=== PATIENT | female | born 1950 | race Caucasian/White ===

== ENCOUNTER 2019-10-22 06:00 | Outpatient (RCR) | payer MEDICARE, OTHER, SELFPAY | END 2019-11-21 00:01 | LOC: SPT 06:00 | PROVIDERS: Family Provider Family Medicine; Visit Provider Family Medicine | DX: M54.5 Low back pain (principal); M19.90 Unspecified osteoarthritis, unspecified site | CPT/HCPCS: 97110 ×4 ==

== ENCOUNTER 2020-03-29 09:01 | Outpatient (CLI) | payer MEDICARE, OTHER, SELFPAY ==
--- NOTE | 2020-03-29 09:15 | MM_ITS ---
WS: [id number] BILATERAL DIGITAL SCREENING MAMMOGRAPHY WITH CAD CLINICAL INFORMATION: SCREEN HISTORY: Screening mammogram. No current complaints. COMPARISON: December 29, 2018 TECHNIQUE: Bilateral CC and MLO views. FINDINGS: Scattered fibroglandular densities bilaterally. Increasing asymmetric slightly spiculated density cate suring 8 mm upper outer LEFT breast. Recommend spot compression views and ultrasound. This is best se en on the cc view. Vascular calcification. Right breast is unchanged. MM/[place] [id number] IMPRESSION: BI-RADS: 0-Incomplete: Need additional imaging evaluation FOLLOW UP: Need Additional Imaging
== END 2020-03-29 09:02 | disposition home or self-care (01) ==
LOC: RADSHAW 09:07
PROVIDERS: PCP Family Medicine; Visit Provider Family Medicine
DX: Z12.31 Encounter for screening mammogram for malignant neoplasm of breast (principal)
CPT/HCPCS: 77067

== ENCOUNTER 2020-05-13 07:54 | Outpatient (CLI) | payer MEDICARE, OTHER, SELFPAY ==
--- NOTE | 2020-05-13 08:02 | US_ITS ---
WS: [id number] LEFT DIGITAL MAMMOGRAPHY WITH CAD CLINICAL INFORMATION: ABNORMAL MAMMOGRAM COMPARISON: March 29, 2020 TECHNIQUE: 4 views of the left breast were obtained. FINDINGS: The left breast is composed of heterogeneous fibroglandular density tissue, which can limit the detec tion of small underlying mass lesions. Vascular calcification. Stable 8 mm slightly spiculated asymmetric density upper outer left breast. This persists on spot com pression views. Ultrasound is pending. ULTRASOUND BREAST LEFT TECHNIQUE: Ultrasound left breast focused area of concern. CLINICAL INFORMATION: ABNORMAL MAMMOGRAM COMPARISON: 2019 and 12/29/2018 FINDINGS: Ultrasound left breast at the 12 to 3:00 position. A few faint hypoechoic lesions the largest at the 12:00 position. 12:00 lesion measures 9.4 x 3.4 x 5.9 mm. Irregular lobulated borders. Recommend furt her evaluation with ultrasound-guided biopsy. Additional smaller hypoechoic lesions at the 1:00 and 3:00 positions are probably benign and recommen d 6 month follow-up with left diagnostic mammography and ultrasound. US/US breast LT limited* [id number] IMPRESSION: BI-RADS: 4A-Suspicious: Low FOLLOW UP: US Guided Biopsy Recommended
== END 2020-05-13 07:55 | disposition home or self-care (01) ==
LOC: RADSHAW 08:00
PROVIDERS: PCP Family Medicine; Visit Provider Family Medicine
DX: R92.8 Other abnormal and inconclusive findings on diagnostic imaging of breast (principal); N64.89 Other specified disorders of breast
CPT/HCPCS: 76642; 77065

== ENCOUNTER 2020-06-13 12:03 | Outpatient (CLI) | payer MEDICARE, OTHER, SELFPAY ==
--- NOTE | 2020-06-13 13:00 | US_ITS ---
WS: [id number] ULTRASOUND-GUIDED LEFT BREAST BIOPSY HISTORY: abnormal mammogram COMPARISON: 05/11/2020 and 03/29/2020 Procedure, risks and complications are explained to the patient. Medications are reviewed. Consent is obtained. The mass in the LEFT breast is localized with ultrasound. Mass centered at 12:00, 3 cm from the nippl e. Skin is cleansed with ChloraPrep and anesthetized with 1% buffered lidocaine. Small dermatome is m deanna. Under sterile conditions mass is biopsied with a 14-gauge Achieve needle. Multiple core biopsies are performed. Material placed in formalin and sent to pathology for review. No complications encoun tered. Breast tissue marker (Bard ultrasound enhanced ribbon): Single. Patient left the radiology suite with no complications. Patient is instructed to return [place] [facility] [place] [facility] with any concerns. 1. Uncomplicated core needle biopsy LEFT breast nodule at 12:00. US/[place] [id number] IMPRESSION: PATHOLOGY: Benign fibroadipose tissue with stromal fibrosis. No malignancy. RECOMMENDATION: 6 month LEFT breast diagnostic mammogram. Imaging and pathological findings are concordant.
== END 2020-06-13 12:04 | disposition home or self-care (01) ==
LOC: RAD 12:07
PROVIDERS: PCP Family Medicine; Visit Provider Obstetrics & Gynecology
DX: R92.8 Other abnormal and inconclusive findings on diagnostic imaging of breast (principal); N60.32 Fibrosclerosis of left breast
CPT/HCPCS: 19083; 88305

== ENCOUNTER 2020-10-25 10:01 | Outpatient (CLI) | payer MEDICARE, OTHER, SELFPAY ==
--- NOTE | 2020-10-25 10:30 | MM_ITS ---
WS: [id number] Left breast diagnostic digital mammogram, 10/25/2020 Clinical Data: abnormal mammogram Comparison: 05/13/2020, 03/29/2020, 12/29/2018, 06/09/2017, 03/19/2016, 03/07/2015, 02/15/2014, 11/03/2012, , 08/26/2010, 07/30/2009, 07/17/2008, 06/02/2007, 07/15/2006. Findings: The left breast lesion noted on prior exams is no longer present. There is a biopsy clip in the regio n of this density. The breast parenchymal pattern shows fibroglandular tissue. There are small lymph nodes in the left axilla. There are no spiculated masses or clustered calcifications. MM/[place] [id number] Impression: 1. Negative left breast mammogram. 2. Return to annual screening mammograms BIRADS: 2-Benign FOLLOW UP: 1 Year Follow-up The CAD jukebox checker was used.
== END 2020-10-25 10:02 | disposition home or self-care (01) ==
LOC: RADSHAW 10:05
PROVIDERS: PCP Family Medicine; Visit Provider Obstetrics & Gynecology
DX: R92.8 Other abnormal and inconclusive findings on diagnostic imaging of breast (principal)
CPT/HCPCS: 77065

== ENCOUNTER 2020-12-11 09:53 | Outpatient (CLI) | payer MEDICARE, SELFPAY ==
--- NOTE | 2020-12-11 11:59 | XR_ITS ---
WS: [id number] LEFT SHOULDER: 2 VIEW(S) TECHNIQUE: Internal and external rotation. HISTORY: M19.90 - Unspecified osteoarthritis, unspecified site COMPARISON: None available. No fracture or dislocation or soft tissue abnormality. Mild narrowing of the AC joint. Minimal hypertrophic bone formation. More advanced narrowing with ost eophyte formation and sclerosis involving the glenohumeral joint. No fractures. XR/XR shoulder LT min 2V* [id number] IMPRESSION: 1. Moderate to severe glenohumeral joint osteoarthritis. 2. Mild degenerative changes at the AC joint.
--- NOTE | 2020-12-11 11:59 | XR_ITS ---
WS: [id number] Lumbar spine, 3 views, 12/11/2020 Clinical Data: M19.90 - Unspecified osteoarthritis, unspecified site Comparison: Lumbar spine, 09/08/2019. Findings: There is a dextroscoliosis. There is osteoarthritic change involving lumbar vertebral bodies. All the disc spaces from L1-L2 through L5-S1 show degenerative disc disease. The transverse processes and SI joints are normal. XR/XR lumbar spine 2-3V* [id number] Impression: 1. Osteoarthritis of all lumbar vertebral bodies. 2. Degenerative disc disease at all levels. 3. Minimal dextroscoliosis.
--- NOTE | 2020-12-11 11:59 | XR_ITS ---
WS: [id number] Left hand, 2 views, 12/11/2020 Clinical Data: M19.90 - Unspecified osteoarthritis, unspecified site Comparison: None. Findings: Osteoarthritis of the DIP joints is present. There is osteoarthritis of the PIP joints of the left fo urth and fifth fingers. There is osteoarthritis of the head of the left first metacarpal and at the a rticulation between the left first metacarpal and trapezium. No fractures are seen. The patient's rin g obscures minimal detail over the left fourth proximal phalanx. XR/XR hand LT 2V [id number] Impression: 1. Osteoarthritis of the second through fifth DIP joints and of the left fourth and fifth PIP joints. 2. Osteoarthritis of the left first metacarpal.
--- NOTE | 2020-12-11 11:59 | XR_ITS ---
WS: [id number] Right shoulder, 2 views, 12/11/2020 Clinical Data: M19.90 - Unspecified osteoarthritis, unspecified site Comparison: Right shoulder, 07/04/2018. Findings: No fractures or dislocations are seen. The AC joint is normal. The adjacent right clavicle, right sca pula and ribs are normal. The soft tissues are unremarkable. There is irregularity over the greater tuberosity. There is spur of the lesser tuberosity adjacent to the inferior rim of the glenoid. XR/XR shoulder RT min 2V* [id number] Impression: Moderate osteoarthritis of the right humeral head.
--- NOTE | 2020-12-11 11:59 | XR_ITS ---
WS: [id number] Right knee, AP and lateral, 12/11/2020 Clinical Data: M19.90 - Unspecified osteoarthritis, unspecified site Comparison: AP knees, 10/06/2017. Findings: The patient has had a hemiarthroplasty involving the medial joint compartment of the right knee. The arthroplasty components are in good position with no loosening. The posterior right patella is un remarkable. The soft tissues are normal. XR/XR knee RT 1-2V [id number] Impression: Medial right hemiarthroplasty of the right knee.
--- NOTE | 2020-12-11 11:59 | XR_ITS ---
WS: [id number] Left knee, 2 views, 12/11/2020 Clinical Data: M19.90 - Unspecified osteoarthritis, unspecified site Comparison: Bilateral knees, 10/06/2017. Findings: The arthroplasty components of the left knee are good position. No loosening is seen. There are no fr actures or dislocations. XR/XR knee LT 1-2V [id number] Impression: Left knee arthroplasty.
--- NOTE | 2020-12-11 11:59 | XR_ITS ---
WS: [id number] Right hand, 2 views, 12/11/2020 Clinical Data: M19.90 - Unspecified osteoarthritis, unspecified site Comparison: None. Findings: There is osteoarthritis of the DIP joints. Moderate osteoarthritis of the PIP joints especi ally the right fifth PIP joint is noted. There are no fractures or dislocations. No periarticular dem ineralization or calcifications are seen. Osteoarthritis of the head of the right first metacarpal and osteoarthritis at the articulation betwe en the trapezium and base of right first metacarpal are seen. XR/XR hand RT 2V [id number] Impression: Osteoarthritis of the right first metacarpal, PIP and DIP joints of the right h and.
[2020-12-11 12:00] LABS: Basophils % 0.5 %; Hemoglobin 13.9 g/dL (11.5-15.3); Mean Platelet Volume 9.6 fL (7.4-10.4); Nucleated Red Blood Cells % 0 %
[2020-12-11 12:10] LABS: Eosinophils # 0.1 10^3/uL (0.0-0.8); Eosinophils % 1.2 %; Hematocrit 42.3 % (37.0-47.0); Lymphocytes # 1.2 10^3/uL (0.8-4.8); Mean Corpuscular HGB Conc 32.9 g/dL (30.0-36.0); Mean Corpuscular Hemoglobin 29.5 pg (28.0-34.0); Mean Corpuscular Volume 89.8 fL (81-99); Monocytes # 0.3 10^3/uL (0.2-0.9); Neutrophils # 2.49 10^3/uL (1.8-7.7); Neutrophils % 60.1 %; Platelet Count 241 10^3/cmm (130-400); Red Blood Count 4.71 10^6/uL (4.1-5.3); White Blood Count 4.1 10^3/uL (4.0-10.0)
[2020-12-11 12:31] LABS: Alanine Aminotransferase 8 U/L (0-33); Albumin Level 4.5 g/dL (3.5-5.2); Alkaline Phosphatase 96 IU/L (35-105); Anion Gap 14.3 (5-19); Aspartate Amino Transferase 20 U/L (0-32); Blood Urea Nitrogen 14 mg/dL (8-23); C Reactive Protein 1.8 mg/L (0.0-4.9); Calcium 9.9 mg/dL (8.5-10.5); Carbon Dioxide 27 mmol/L (22-29); Chloride 100 mmol/L (98-107); Ferritin 40 ng/mL (15-150); Globulin 2.8 g/dL (1.3-4.6); Glucose 94 mg/dL (65-115); Iron 90 ug/dL (37-145); Osmolality Calculated 284 mOsm/kg (285-295); Potassium 4.3 mmol/L (3.5-5.1); Sodium 137 mmol/L (136-145); Thyroid Stimulating Hormone 2.11 uIU/mL (0.27-4.20); Total Bilirubin 0.4 mg/dL (0.15-1.2); Total Protein 7.3 g/dL (6.6-8.7)
[2020-12-11 14:11] LABS: Hepatitis B Core AB, Total Non-Reactive (Nonreactive); Hepatitis B Surface Antigen Non-Reactive (Nonreactive); Hepatitis C Virus Antibody Non-Reactive (Nonreactive)
[2020-12-12 14:14] LABS: Cyclic Citrullinated Peptide <16 UNITS
[2020-12-12 14:44] LABS: Anti-Nuclear Antibody Screen NEGATIVE (NEGATIVE)
[2020-12-15 02:25] LABS: Glucose-6-Phosphate Dehydrogen 14.6 U/g Hgb (7.0-20.5)
[2020-12-18 10:24] LABS: HLA-B27 POSITIVE (NEGATIVE)
== END 2020-12-11 09:54 | disposition home or self-care (01) ==
LOC: LAB 11:35
PROVIDERS: PCP Family Medicine; Visit Provider Internal Medicine
DX: D86.9 Sarcoidosis, unspecified (principal); M19.012 Primary osteoarthritis, left shoulder; Z51.81 Encounter for therapeutic drug level monitoring; M19.011 Primary osteoarthritis, right shoulder; M47.816 Spondylosis without myelopathy or radiculopathy, lumbar region; M51.36 Other intervertebral disc degeneration, lumbar region; M41.86 Other forms of scoliosis, lumbar region; Z96.653 Presence of artificial knee joint, bilateral; M19.042 Primary osteoarthritis, left hand; M19.041 Primary osteoarthritis, right hand
CPT/HCPCS: 36415; 72100; 73030; 73120; 73560; 80053; 82728; 82955; 83540; 84443; 85025; 86038; 86140; 86431; 86704; 86803; 86812; 87340; 99203; 99204

== ENCOUNTER → 2021-01-03 09:18 | Outpatient (BNVA) | payer MEDICARE, SELFPAY | PROVIDERS: PCP Family Medicine; Visit Provider Internal Medicine | DX: M19.90 Unspecified osteoarthritis, unspecified site (principal); M79.643 Pain in unspecified hand; Z15.89 Genetic susceptibility to other disease; Z79.52 Long term (current) use of systemic steroids | CPT/HCPCS: 99214 ==

== ENCOUNTER 2021-04-01 15:52 | Outpatient (CLI) | payer MEDICARE, SELFPAY ==
[2021-04-01 16:27] LABS: Basophils % 0.5 %; Eosinophils # 0.1 10^3/uL (0.0-0.8); Eosinophils % 3.2 %; Hematocrit 38.5 % (37.0-47.0); Hemoglobin 12.9 g/dL (11.5-15.3); Lymphocytes # 1.4 10^3/uL (0.8-4.8); Lymphocytes % 30.9 %; Mean Corpuscular HGB Conc 33.5 g/dL (30.0-36.0); Mean Corpuscular Hemoglobin 30.8 pg (28.0-34.0); Mean Corpuscular Volume 91.9 fL (81-99); Mean Platelet Volume 9.9 fL (7.4-10.4); Monocytes # 0.4 10^3/uL (0.2-0.9); Monocytes % 8.8 %; Neutrophils # 2.49 10^3/uL (1.8-7.7); Neutrophils % 56.1 %; Nucleated Red Blood Cells % 0 %; Platelet Count 231 10^3/cmm (130-400); Red Blood Count 4.19 10^6/uL (4.1-5.3); Red Cell Distribution Width 12.4 % (12.1-15.1); White Blood Count 4.4 10^3/uL (4.0-10.0)
[2021-04-01 17:39] LABS: Alanine Aminotransferase 12 U/L (0-33); Albumin Level 4.4 g/dL (3.5-5.2); Alkaline Phosphatase 81 IU/L (35-105); Anion Gap 11.4 (5-19); Aspartate Amino Transferase 24 U/L (0-32); Blood Urea Nitrogen 13 mg/dL (8-23); C Reactive Protein 0.9 mg/L (0.0-4.9); Calcium 8.7 mg/dL (8.5-10.5); Carbon Dioxide 28 mmol/L (22-29); Chloride 105 mmol/L (98-107); Globulin 2.3 g/dL (1.3-4.6); Glucose 99 mg/dL (65-115); Osmolality Calculated 290 mOsm/kg (285-295); Potassium 4.4 mmol/L (3.5-5.1); Sodium 140 mmol/L (136-145); Total Bilirubin 0.2 mg/dL (0.15-1.2); Total Protein 6.7 g/dL (6.6-8.7)
[2021-04-01 21:23] LABS: Erythrocyte Sedimentation Rate 15 mm/hr (0-15)
== END 2021-04-01 15:53 | disposition home or self-care (01) ==
PROVIDERS: PCP Family Medicine; Visit Provider Internal Medicine
DX: M19.90 Unspecified osteoarthritis, unspecified site (principal); Z15.89 Genetic susceptibility to other disease; Z79.899 Other long term (current) drug therapy
CPT/HCPCS: 36415; 80053; 85025; 85651; 86140

== ENCOUNTER → 2021-04-08 09:27 | Outpatient (BNVA) | payer MEDICARE, SELFPAY | PROVIDERS: PCP Family Medicine; Visit Provider Internal Medicine | DX: M79.641 Pain in right hand (principal); M79.642 Pain in left hand; Z15.89 Genetic susceptibility to other disease; M19.90 Unspecified osteoarthritis, unspecified site | CPT/HCPCS: 99213 ==

== ENCOUNTER → 2021-04-22 15:26 | Outpatient (BNVA) | payer MEDICARE, SELFPAY | PROVIDERS: PCP Family Medicine; Visit Provider Internal Medicine | DX: M19.90 Unspecified osteoarthritis, unspecified site (principal); Z15.89 Genetic susceptibility to other disease | CPT/HCPCS: 20610; 99213; J3301 ==

== ENCOUNTER → 2021-04-25 09:20 | Outpatient (BNVA) | payer MEDICARE, SELFPAY | PROVIDERS: PCP Family Medicine; Visit Provider Internal Medicine | DX: T50.905A Adverse effect of unspecified drugs, medicaments and biological substances, initial encounter (principal); M19.90 Unspecified osteoarthritis, unspecified site; R21 Rash and other nonspecific skin eruption | CPT/HCPCS: 99213 ==

== ENCOUNTER 2021-05-30 10:51 | Outpatient (CLI) | payer MEDICARE, SELFPAY ==
--- NOTE | 2021-05-30 10:59 | MM_ITS ---
WS: [id number] SCREENING DIGITAL MAMMOGRAM WITH CAD HISTORY: SCREENING COMPARISON: None available. Bilateral CC and MLO views submitted. Computer aided detection analyzed. Breast composition: There are scattered areas of fibroglandular density. Focal area of architectural distortion in the LEFT breast near 10:00 posteriorly. Very subtle finding but there is been increased in the density since the prior examinations. There is an additional biopsy clip in the middle upper outer quadrant of the LEFT breast. MM/[place] [id number] IMPRESSION: BI-RADS: 0-Incomplete: Need additional imaging evaluation FOLLOW UP: Need Additional Imaging LEFT breast: Spot compression views (CC and MLO). True ML. Ultrasound to follow if abnormality persists.
== END 2021-05-30 10:52 | disposition home or self-care (01) ==
LOC: RADSHAW 10:57
PROVIDERS: PCP Family Medicine; Visit Provider Obstetrics & Gynecology
DX: Z12.31 Encounter for screening mammogram for malignant neoplasm of breast (principal)
CPT/HCPCS: 77067

== ENCOUNTER 2021-06-11 07:39 | Outpatient (CLI) | payer MEDICARE, SELFPAY ==
--- NOTE | 2021-06-11 08:00 | MM_ITS ---
WS: [id number] ADDITIONAL VIEWS LEFT MAMMOGRAM LEFT BREAST ULTRASOUND HISTORY: R92.8 - Other abnormal and inconclusive findings on diagnostic mammogram. COMPARISON: 05/30/2021 and 10/25/2020 and 05/13/2022 and 03/19/2016 LEFT MAMMOGRAM: Spot compression views and true ML. Very mild asymmetry persists in the upper-outer quadrant of the LEFT breast near 2:00. LEFT BREAST ULTRASOUND 2-D and color Doppler imaging submitted. There is a small lymph node or cyst noted in the LEFT breast at 1:00, 3 cm from the nipple. This nodu le measures 5 x 2 x 5 mm. May or may not correspond to the mammographic abnormality. MM/[place] [id number] IMPRESSION: BI-RADS: 3-Probably Benign FOLLOW UP: 6 Month Follow-up Asymmetry does not completely resolve with additional views although there is n o discrete mass for biopsy. Recommend 6 month follow-up. Mammogram and ultrasou nd follow-up necessary.
--- NOTE | 2021-06-11 08:30 | US_ITS ---
WS: [id number] ADDITIONAL VIEWS LEFT MAMMOGRAM LEFT BREAST ULTRASOUND HISTORY: R92.8 - Other abnormal and inconclusive findings on diagnostic mammogram. COMPARISON: 05/30/2021 and 10/25/2020 and 05/13/2022 and 03/19/2016 LEFT MAMMOGRAM: Spot compression views and true ML. Very mild asymmetry persists in the upper-outer quadrant of the LEFT breast near 2:00. LEFT BREAST ULTRASOUND 2-D and color Doppler imaging submitted. There is a small lymph node or cyst noted in the LEFT breast at 1:00, 3 cm from the nipple. This nodu le measures 5 x 2 x 5 mm. May or may not correspond to the mammographic abnormality. US/US breast LT limited* [id number] IMPRESSION: BI-RADS: 3-Probably Benign FOLLOW UP: 6 Month Follow-up Asymmetry does not completely resolve with additional views although there is n o discrete mass for biopsy. Recommend 6 month follow-up. Mammogram and ultrasou nd follow-up necessary.
== END 2021-06-11 07:40 | disposition home or self-care (01) ==
PROVIDERS: PCP Family Medicine; Visit Provider Obstetrics & Gynecology
DX: R92.8 Other abnormal and inconclusive findings on diagnostic imaging of breast (principal); N64.89 Other specified disorders of breast
CPT/HCPCS: 76642; 77065

== ENCOUNTER 2021-07-25 08:52 | Outpatient (CLI) | payer MEDICARE, SELFPAY ==
[2021-07-25 09:54] LABS: Alanine Aminotransferase 11 U/L (0-33); Albumin Level 4.1 g/dL (3.5-5.2); Alkaline Phosphatase 79 IU/L (35-105); Blood Urea Nitrogen 17 mg/dL (8-23); C Reactive Protein 1.5 mg/L (0.0-4.9); Calcium 8.9 mg/dL (8.5-10.5); Carbon Dioxide 24 mmol/L (22-29); Chloride 106 mmol/L (98-107); Globulin 2.4 g/dL (1.3-4.6); Glucose 66 mg/dL (65-115); Osmolality Calculated 288 mOsm/kg (285-295); Sodium 139 mmol/L (136-145); Total Bilirubin 0.2 mg/dL (0.15-1.2); Total Protein 6.5 g/dL (6.6-8.7)
[2021-07-25 09:58] LABS: Anion Gap 13.6 (5-19); Potassium 4.6 mmol/L (3.5-5.1)
[2021-07-25 09:59] LABS: Aspartate Amino Transferase 26 U/L (0-32); Basophils % 0.5 %; Eosinophils # 0.2 10^3/uL (0.0-0.8); Eosinophils % 4.6 %; Hematocrit 39.9 % (37.0-47.0); Hemoglobin 12.9 g/dL (11.5-15.3); Lymphocytes % 26.3 %; Mean Corpuscular HGB Conc 32.3 g/dL (30.0-36.0); Mean Corpuscular Hemoglobin 30.4 pg (28.0-34.0); Mean Corpuscular Volume 93.9 fl (81-99); Mean Platelet Volume 9.6 fL (7.4-10.4); Monocytes # 0.4 10^3/uL (0.2-0.9); Monocytes % 10.2 %; Neutrophils # 2.28 10^3/uL (1.8-7.7); Neutrophils % 58.1 %; Nucleated Red Blood Cells % 0 %; Platelet Count 205 10^3/cmm (130-400); Red Blood Count 4.25 10^6/uL (4.1-5.3); White Blood Count 3.9 10^3/uL (4.0-10.0)
[2021-07-25 11:06] LABS: Erythrocyte Sedimentation Rate 9 mm/hr (0-15)
== END 2021-07-25 08:53 | disposition home or self-care (01) ==
PROVIDERS: PCP Family Medicine; Visit Provider Internal Medicine
DX: M19.90 Unspecified osteoarthritis, unspecified site (principal); Z15.89 Genetic susceptibility to other disease; Z79.899 Other long term (current) drug therapy
CPT/HCPCS: 36415; 80053; 85025; 85651; 86140

== ENCOUNTER → 2021-08-04 14:03 | Outpatient (BNVA) | payer MEDICARE, SELFPAY | PROVIDERS: PCP Family Medicine; Visit Provider Internal Medicine | DX: Z15.89 Genetic susceptibility to other disease (principal); M19.90 Unspecified osteoarthritis, unspecified site; Z79.899 Other long term (current) drug therapy | CPT/HCPCS: 99213; 99214 ==

== ENCOUNTER 2021-08-04 15:50 | Outpatient (CLI) | payer MEDICARE, SELFPAY ==
--- NOTE | 2021-08-04 16:13 | XR_ITS ---
WS: [id number] XR sacroiliac jts m 3V [id number] REASON FOR EXAM: L40.9 - Psoriasis, unspecified FINDINGS: Sacroiliac joints are well defined with sclerotic margins. No erosions. No bony bridging or areas eff usion. Osteophytosis at the distal margins of the sacroiliac joints. No other significant abnormality. XR/XR sacroiliac jts m 3V [id number] IMPRESSION: No findings of spondyloarthropathy in the sacroiliac joints.
== END 2021-08-04 15:51 | disposition home or self-care (01) ==
LOC: RAD 15:56
PROVIDERS: PCP Family Medicine; Visit Provider Internal Medicine
DX: L40.9 Psoriasis, unspecified (principal); Z15.89 Genetic susceptibility to other disease
CPT/HCPCS: 72202

== ENCOUNTER → 2021-10-29 13:02 | Outpatient (BNVA) | payer MEDICARE, SELFPAY | PROVIDERS: PCP Family Medicine; Visit Provider Internal Medicine | DX: M19.019 Primary osteoarthritis, unspecified shoulder (principal); Z15.89 Genetic susceptibility to other disease; D72.819 Decreased white blood cell count, unspecified; Z79.899 Other long term (current) drug therapy | CPT/HCPCS: 36415; 80053; 85025; 85651; 86140; 99214 ==

== ENCOUNTER 2021-10-29 15:05 | Outpatient (CLI) | payer MEDICARE, SELFPAY ==
[2021-10-29 15:40] LABS: Basophils % 0.4 %; Eosinophils # 0.1 10^3/uL (0.0-0.8); Eosinophils % 2.6 %; Hematocrit 38.2 % (37.0-47.0); Hemoglobin 12.8 g/dL (11.5-15.3); Lymphocytes # 1.4 10^3/uL (0.8-4.8); Lymphocytes % 26.8 %; Mean Corpuscular HGB Conc 33.5 g/dL (30.0-36.0); Mean Corpuscular Hemoglobin 30.5 pg (28.0-34.0); Mean Platelet Volume 9.3 fL (7.4-10.4); Monocytes # 0.4 10^3/uL (0.2-0.9); Monocytes % 7.7 %; Neutrophils # 3.29 10^3/uL (1.8-7.7); Neutrophils % 62.1 %; Nucleated Red Blood Cells % 0 %; Platelet Count 239 10^3/cmm (130-400); Red Cell Distribution Width 11.9 % (12.1-15.1); White Blood Count 5.3 10^3/uL (4.0-10.0)
[2021-10-29 15:49] LABS: Alanine Aminotransferase 11 U/L (0-33); Albumin Level 4.6 g/dL (3.5-5.2); Alkaline Phosphatase 75 IU/L (35-105); Anion Gap 17.3 (5-19); Aspartate Amino Transferase 20 U/L (0-32); Blood Urea Nitrogen 14 mg/dL (8-23); C Reactive Protein 0.7 mg/L (0.0-4.9); Carbon Dioxide 23 mmol/L (22-29); Chloride 102 mmol/L (98-107); Globulin 2.5 g/dL (1.3-4.6); Glucose 85 mg/dL (65-115); Osmolality Calculated 286 mOsm/kg (285-295); Potassium 4.3 mmol/L (3.5-5.1); Sodium 138 mmol/L (136-145); Total Bilirubin 0.2 mg/dL (0.15-1.2); Total Protein 7.1 g/dL (6.6-8.7)
[2021-10-30 15:30] LABS: Erythrocyte Sedimentation Rate 2 mm/hr (0-15)
== END 2021-10-29 15:06 | disposition home or self-care (01) ==
PROVIDERS: PCP Family Medicine; Visit Provider Internal Medicine
DX: D72.819 Decreased white blood cell count, unspecified (principal); Z15.89 Genetic susceptibility to other disease; Z79.899 Other long term (current) drug therapy
CPT/HCPCS: 36415; 80053; 85025; 85651; 86140

== ENCOUNTER 2021-12-12 10:15 | Outpatient (CLI) | payer MEDICARE, SELFPAY ==
--- NOTE | 2021-12-12 10:29 | MM_ITS ---
WS: [id number] LEFT DIGITAL MAMMOGRAPHY WITH CAD CLINICAL INFORMATION: R92.8 - Other abnormal and inconclusive findings on diagn... COMPARISON: 05/30/2021 and 06/11/2021 TECHNIQUE: 5 views of the left breast were obtained. FINDINGS: Scattered fibroglandular densities of the left breast. Biopsy clip left breast. Previously described largest breast tissue in the upper outer left breast is unchanged near the 2:00 position. Ultrasound is pending. ULTRASOUND BREAST LEFT TECHNIQUE: Ultrasound left breast focused area of concern. CLINICAL INFORMATION: R92.8 - Other abnormal and inconclusive findings on diagn... FINDINGS: Ultrasound left breast the 1:00 position 3 cm from the nipple. At the 1:00 position 3 cm from the nip ple there is a hypoechoic slightly complex lesion measuring 5.1 x 2.9 x 3.8 mm which may represent a complex cyst or lymph node but indeterminant.. This is unchanged in appearance compared to June 11 021. Recommend additional six-month follow-up MM/[place] [id number] IMPRESSION: BI-RADS: 3-Probably Benign FOLLOW UP: 6 Month Follow-up RECOMMEND ADDITIONAL SIX-MONTH FOLLOW-UP LEFT BREAST DIAGNOSTIC MAMMOGRAPHY AND ULTRASOUND.
== END 2021-12-12 10:16 | disposition home or self-care (01) ==
LOC: RADSHAW 10:23
PROVIDERS: PCP Family Medicine; Visit Provider Obstetrics & Gynecology
DX: R92.8 Other abnormal and inconclusive findings on diagnostic imaging of breast (principal); N63.11 Unspecified lump in the right breast, upper outer quadrant
CPT/HCPCS: 76642; 77065

== ENCOUNTER → 2022-02-10 10:44 | Outpatient (BNVA) | payer MEDICARE, SELFPAY | PROVIDERS: PCP Family Medicine; Visit Provider Internal Medicine | DX: M79.643 Pain in unspecified hand (principal); Z15.89 Genetic susceptibility to other disease | CPT/HCPCS: 99214 ==

== ENCOUNTER → 2022-03-26 14:46 | Outpatient (BNVA) | payer MEDICARE, SELFPAY | PROVIDERS: PCP Family Medicine; Visit Provider Internal Medicine | DX: M79.643 Pain in unspecified hand (principal); Z15.89 Genetic susceptibility to other disease; Z79.899 Other long term (current) drug therapy | CPT/HCPCS: 99214 ==

== ENCOUNTER 2022-04-30 09:33 | Outpatient (CLI) | payer MEDICARE, SELFPAY ==
[2022-04-30 10:18] LABS: Basophils % 0.3 %; Eosinophils # 0.1 10^3/uL (0.0-0.8); Eosinophils % 3.6 %; Hemoglobin 13.2 g/dL (11.5-15.3); Lymphocytes # 1.1 10^3/uL (0.8-4.8); Mean Corpuscular Hemoglobin 30.2 pg (28.0-34.0); Mean Corpuscular Volume 91.5 fl (81-99); Mean Platelet Volume 9.8 fL (7.4-10.4); Monocytes # 0.4 10^3/uL (0.2-0.9); Monocytes % 9.8 %; Neutrophils # 2.09 10^3/uL (1.8-7.7); Nucleated Red Blood Cells % 0 %; Platelet Count 204 10^3/cmm (130-400); Red Blood Count 4.37 10^6/uL (4.1-5.3); Red Cell Distribution Width 12.8 % (12.1-15.1); White Blood Count 3.7 10^3/uL (4.0-10.0)
[2022-04-30 10:37] LABS: Alanine Aminotransferase 19 U/L (0-33); Albumin Level 4.4 g/dL (3.5-5.2); Alkaline Phosphatase 94 IU/L (35-105); Anion Gap 14.2 (5-19); Aspartate Amino Transferase 27 U/L (0-32); Blood Urea Nitrogen 16 mg/dL (8-23); Calcium 9.2 mg/dL (8.5-10.5); Carbon Dioxide 26 mmol/L (22-29); Chloride 103 mmol/L (98-107); Globulin 2.7 g/dL (1.3-4.6); Glucose 92 mg/dL (65-115); Osmolality Calculated 289 mOsm/kg (285-295); Potassium 4.2 mmol/L (3.5-5.1); Sodium 139 mmol/L (136-145); Total Bilirubin 0.3 mg/dL (0.15-1.2); Total Protein 7.1 g/dL (6.6-8.7)
[2022-04-30 10:49] LABS: Erythrocyte Sedimentation Rate 4 mm/hr (0-15)
== END 2022-04-30 09:34 | disposition home or self-care (01) ==
PROVIDERS: PCP Family Medicine; Visit Provider Internal Medicine
DX: M19.90 Unspecified osteoarthritis, unspecified site (principal); Z79.899 Other long term (current) drug therapy; Z15.89 Genetic susceptibility to other disease
CPT/HCPCS: 80053; 85025; 85651; 86140

== ENCOUNTER → 2022-05-05 08:41 | Outpatient (BNVA) | payer MEDICARE, SELFPAY | PROVIDERS: PCP Family Medicine; Visit Provider Internal Medicine | DX: M19.90 Unspecified osteoarthritis, unspecified site (principal); Z15.89 Genetic susceptibility to other disease; R53.83 Other fatigue | CPT/HCPCS: 36415; 83036; 84439; 84443; 99214 ==

== ENCOUNTER → 2022-05-21 14:36 | Outpatient (BNVA) | payer MEDICARE, SELFPAY | PROVIDERS: PCP Family Medicine; Visit Provider Family Medicine | DX: F41.9 Anxiety disorder, unspecified (principal); R53.83 Other fatigue; M19.90 Unspecified osteoarthritis, unspecified site; G47.33 Obstructive sleep apnea (adult) (pediatric); K76.0 Fatty (change of) liver, not elsewhere classified | CPT/HCPCS: 80061; 82306 ==

== ENCOUNTER 2022-05-26 07:31 | Outpatient (CLI) | payer MEDICARE, SELFPAY ==
--- NOTE | 2022-05-26 07:42 | MM_ITS ---
WS: [id number] DIAGNOSTIC BILATERAL DIGITAL BREAST TOMOSYNTHESIS MAMMOGRAPHY WITH CAD LEFT breast ultrasound, limited. HISTORY: 6 month follow-up. Complex cyst LEFT breast. COMPARISON: 12/12/2020, 06/11/2021, 05/30/2021, 12/29/2018 TECHNIQUE: Bilateral craniocaudad, mediolateral oblique, and mediolateral views are submitted with to mosynthesis and SM. Spot compression LEFT CC and MLO and RIGHT CC. Computer aided detection utilized. Breast composition: There are scattered areas of fibroglandular density. Asymmetry and biopsy clip in the lateral LEFT breast are stable. No mass or enlarging mass or distortion. Asymmetry in the anteri or RIGHT breast resolves with additional spot compression views. LEFT breast ultrasound, limited. Ultrasound is directed to 1:00, 3 cm the nipple as seen on the prior examination. There is a very sma ll hypoechoic nodule measuring 6 x 2 x 4 mm which is unchanged. This may be a small lymph node or cys t. No progression. MM/[place] [id number] IMPRESSION: BI-RADS: 2-Benign FOLLOW UP: 1 Year Follow-up
== END 2022-05-26 07:32 | disposition home or self-care (01) ==
PROVIDERS: PCP Family Medicine; Visit Provider Obstetrics & Gynecology
DX: R92.8 Other abnormal and inconclusive findings on diagnostic imaging of breast (principal); N60.02 Solitary cyst of left breast
CPT/HCPCS: 76642; 77062

== ENCOUNTER → 2022-05-27 10:15 | Outpatient (BNVA) | payer MEDICARE, SELFPAY | PROVIDERS: PCP Family Medicine; Referring Provider Internal Medicine; Visit Provider Internal Medicine | DX: E78.2 Mixed hyperlipidemia (principal); E66.9 Obesity, unspecified; R53.83 Other fatigue; M19.90 Unspecified osteoarthritis, unspecified site; Z82.49 Family history of ischemic heart disease and other diseases of the circulatory system; Z15.89 Genetic susceptibility to other disease; Z68.31 Body mass index [BMI] 31.0-31.9, adult | CPT/HCPCS: 99204 ==

== ENCOUNTER 2022-07-29 14:40 | Outpatient (CLI) | payer MEDICARE, SELFPAY ==
[2022-07-29 15:14] LABS: Basophils % 0.4 %; Eosinophils # 0.1 10^3/uL (0.0-0.8); Hemoglobin 13.3 g/dL (11.5-15.3); Lymphocytes # 1.4 10^3/uL (0.8-4.8); Lymphocytes % 27.4 %; Mean Corpuscular HGB Conc 33.3 g/dL (30.0-36.0); Mean Corpuscular Hemoglobin 31.1 pg (28.0-34.0); Mean Corpuscular Volume 93.7 fl (81-99); Mean Platelet Volume 9.5 fL (7.4-10.4); Monocytes # 0.4 10^3/uL (0.2-0.9); Monocytes % 8.1 %; Neutrophils # 3.05 10^3/uL (1.8-7.7); Neutrophils % 61.9 %; Nucleated Red Blood Cells % 0 %; Platelet Count 226 10^3/cmm (130-400); Red Blood Count 4.27 10^6/uL (4.1-5.3); Red Cell Distribution Width 12.7 % (12.1-15.1); White Blood Count 4.9 10^3/uL (4.0-10.0)
[2022-07-29 15:22] LABS: Erythrocyte Sedimentation Rate 3 mm/hr (0-15)
[2022-07-29 15:34] LABS: Alanine Aminotransferase 21 U/L (0-33); Albumin Level 4.9 g/dL (3.5-5.2); Alkaline Phosphatase 90 U/L (35-105); Aspartate Amino Transferase 32 U/L (0-32); Blood Urea Nitrogen 12 mg/dL (8-23); Calcium 9.6 mg/dL (8.5-10.5); Carbon Dioxide 26 mmol/L (22-29); Chloride 102 mmol/L (98-107); Globulin 2.2 g/dL (1.3-4.6); Glucose 79 mg/dL (65-115); Osmolality Calculated 287 mOsm/kg (285-295); Sodium 139 mmol/L (136-145); Total Bilirubin 0.2 mg/dL (0.15-1.2); Total Protein 7.1 g/dL (6.6-8.7)
== END 2022-07-29 14:41 | disposition home or self-care (01) ==
LOC: LAB 14:45
PROVIDERS: Absent Provider Internal Medicine; PCP Family Medicine; Visit Provider Internal Medicine
DX: M19.019 Primary osteoarthritis, unspecified shoulder (principal); R53.83 Other fatigue; Z15.89 Genetic susceptibility to other disease
CPT/HCPCS: 80053; 85025; 85651; 86140

== ENCOUNTER → 2022-08-04 14:10 | Outpatient (BNVA) | payer MEDICARE, SELFPAY | PROVIDERS: PCP Family Medicine; Visit Provider Internal Medicine | DX: Z15.89 Genetic susceptibility to other disease (principal); M54.50 Low back pain, unspecified; M19.011 Primary osteoarthritis, right shoulder; M19.012 Primary osteoarthritis, left shoulder | CPT/HCPCS: 20610; 99214; J3301 ==

== ENCOUNTER → 2022-10-05 14:47 | Outpatient (BNVA) | payer MEDICARE, SELFPAY | PROVIDERS: PCP Family Medicine; Visit Provider Podiatrist Foot & Ankle Surgery | DX: S93.321A Subluxation of tarsometatarsal joint of right foot, initial encounter (principal); W10.9XXA Fall (on) (from) unspecified stairs and steps, initial encounter; R60.0 Localized edema | CPT/HCPCS: 73630; 99204 ==

== ENCOUNTER 2022-10-06 15:11 | Outpatient (CLI) | payer MEDICARE, SELFPAY ==
--- NOTE | 2022-10-06 15:41 | CT_ITS ---
WS: [id number] CT RIGHT FOOT, NONCONTRAST. HISTORY: right foot injury Technique: All CT scans at [facility] use at least one of these dose optimization techniques: automated exposure control; mA and/or kV adjustment per patient size (includes targeted exams where dose is matched to clinical indication); or iterative reconstruction. DLP: 126.96 mGy.cm COMPARISON: Radiograph 10/05/2022 First metatarsal: Nondisplaced corner fracture proximal metatarsal along the plantar surface with int ra-articular extension. Second metatarsal: Nondisplaced fracture proximal metatarsal with mild comminution. Fracture extends from the plantar and dorsal surface. There are additional small tiny adjacent avulsion fragments. Third metatarsal: Minimally displaced fracture proximal metatarsal with fracture extending obliquely from the plantar to dorsal surface. Fourth metatarsal: Nondisplaced fracture proximal metatarsal. No articular extension. Fifth metatarsal: Normal. Talus and calcaneus are negative for acute fracture. No intermediate or lateral cuneiform or cuboid f ractures. No widening between the first and second metatarsals. Medial cuneiform: Very subtle, nondisplaced fractures. There are very tiny avulsion fractures near th e expected location of the Lisfranc ligament. Mild soft tissue edema surrounding the metatarsals. CT/CT foot RT wo con* [id number] IMPRESSION: 1. Numerous small nondisplaced proximal metatarsal fractures. Fractures includ e the first through fourth metatarsals as described above. 2. Nondisplaced, very subtle fracture involving the medial cuneiform. Tiny avu lsion fractures along the expected location of the Lisfranc ligament. These fin dings are suspicious for injury to the Lisfranc ligament. There is no separatio n between the fifth first and second metatarsals on this nonstressed examinatio n.
== END 2022-10-06 15:12 | disposition home or self-care (01) ==
LOC: RAD 15:11
PROVIDERS: PCP Family Medicine; Visit Provider Podiatrist Foot & Ankle Surgery
DX: S92.314A Nondisplaced fracture of first metatarsal bone, right foot, initial encounter for closed fracture (principal); S92.324A Nondisplaced fracture of second metatarsal bone, right foot, initial encounter for closed fracture; S92.334A Nondisplaced fracture of third metatarsal bone, right foot, initial encounter for closed fracture; S92.344A Nondisplaced fracture of fourth metatarsal bone, right foot, initial encounter for closed fracture; X58.XXXA Exposure to other specified factors, initial encounter
CPT/HCPCS: 73700

== ENCOUNTER → 2022-10-07 14:07 | Outpatient (BNVA) | payer MEDICARE, SELFPAY | PROVIDERS: PCP Family Medicine; Visit Provider Podiatrist Foot & Ankle Surgery | DX: S93.324A Dislocation of tarsometatarsal joint of right foot, initial encounter (principal); X58.XXXA Exposure to other specified factors, initial encounter; R60.0 Localized edema | CPT/HCPCS: 99214 ==

== ENCOUNTER 2022-10-09 05:38 | Day surgery (SDC) | payer MEDICARE, SELFPAY ==
[2022-10-09] VITALS (8 sets, daily range): BP systolic 118–137; BP diastolic 64–88; PULSE 83–98; RESP 12–19; TEMP 36.2–36.7; O2SAT 95–100
--- NOTE | 2022-10-09 | SCC_ITS ---
2 minutes, 55 seconds of fluoroscopic guidance, for a cumulative dose of 3.714 mGy, was provided to Dr. Hurtado by the radiology department. C-arm images of the right foot were saved for the patient's permanent record. LOUISD
[2022-10-09] MEDS: CELEcoxib 200 mg Capsule 400 MG PO (06:22)
[2022-10-09] MEDS: gabapentin 300 mg Capsule PO (06:22)
[2022-10-09] MEDS: sodium chloride 0.9% 1,000 ML 30 ML IV (06:23)
--- NOTE | 2022-10-09 06:30 | W.PM.OPSUD ---
Surgery/Procedure H&P Update DATE OF PROCEDURE: October 09, 2022 DATE H&P PERFORMED: 10/07/22 CHANGES TO PREVIOUS DOCUMENTATION: No changes to previous documentation PREOP DIAGNOSIS: Lisfranc Fracture Dislocation right foot PRIMARY INDICATION FOR PROCEDURE: Right lisfranc fracture/dislocation PLANNED PROCEDURE: Operation Date: 10/09/22 07:00 Proposed Procedures p Right foot Lisfranc ORIF CPT 92414 S93.324(Right) - Jermaine Hurtado DPM
--- NOTE | 2022-10-09 06:54 | ANES.PREANE2 ---
Pre-Anesthetic Assessment Height/Weight: Height 1.6 m Weight 74.843 kg Temp Pulse Resp BP Pulse Ox O2 Del Method 97.1 F L 87 18 137/68 96 10/09/22 06:02 10/09/22 06:02 10/09/22 06:02 10/09/22 06:02 10/09/22 06:02 10/09/22 06:08 Preop Diagnosis: Lisfranc Fracture Dislocation right foot Operation Date: 10/09/22 07:00 Proposed Procedures p Right foot Lisfranc ORIF CPT 84134 S93.324(Right) - Jermaine Hurtado DPM Familial anesthetic complications: None Was Beta Edward taken within 24 hours: N/A Was Clonidine taken within 24 hours: N/A Last intake: Intake Last Liquid Date 10/08/22 Last Liquid Time 00:00 Last Solid Date 10/08/22 Last Solid Time 19:00 Social No alcohol and No tobacco Exam alert, oriented x 3, clear to auscultation bilaterally and regular rate & rhythm Airway Mallampati: Class I Dentition: full Metabolic Hyperlipidemia Musc/sk Osteoarthritis/DJD Anesthetic Plan ASA status: 2 Anesthesia: General and Regional (specify below) Risk of > 500 ml blood loss (7ml/kg in children): No Medications/Allergies Home Medications Medication Instructions Recorded Confirmed Last Taken Type diphenhydramine HCl 25 mg capsule 25 mg PO DAILY PRN Sleep 06/05/20 10/08/22 09/24/22 History (Allergy (diphenhydramine)) ascorbate calcium (vitamin C) 500 500 mg PO DAILY 04/08/21 10/08/22 10/01/22 History mg tablet mecobalamin (vitamin B12) 1,000 1,000 mcg PO DAILY 04/08/21 10/08/22 10/01/22 History mcg chewable tablet tumeric 100 mg-elisabeth 150 mg-olive cap PO 08/04/21 10/07/22 10/01/22 History 50 mg-oreg 150 mg-caprylate capsule diclofenac sodium 1 % topical gel 2 g topical QID PRN Pain 12/22/21 10/08/22 09/24/22 History cholecalciferol (vitamin D3) 25 25 mcg PO DAILY 02/10/22 10/08/22 10/01/22 History mcg (1,000 unit) capsule folic acid 400 mcg tablet 0.4 mg PO DAILY 02/10/22 10/08/22 10/01/22 History diclofenac potassium 50 mg tablet 50 mg PO BID #180 tabs 05/11/22 10/08/22 10/02/22 Rx lorazepam 1 mg tablet 1 mg PO DAILY PRN anxiety #30 tabs 07/26/22 10/08/22 09/24/22 Rx tramadol 50 mg tablet 50 mg PO BID PRN Pain 10/05/22 10/08/22 10/08/22 History tramadol 50 mg tablet 50 mg PO Q8H PRN pain 7 days #21 10/09/22 Unknown Rx tabs Allergies Allergy/AdvReac Type Severity Reaction Status Date / Time metaxalone [From Skelaxin] Allergy Rash Verified 10/07/22 14:36 methylprednisolone Allergy itching Verified 10/07/22 14:36 [From Depo-Medrol] triamcinolone Allergy itching Verified 10/07/22 14:36 Current Medications Generic Name Dose Route Start Last Admin Trade Name Obieq PRN Reason Stop Dose Admin Sodium Chloride 1,000 mls @ 30 mls/hr 10/09/22 06:00 10/09/22 06:23 Sodium Chloride 0.9% IV 10/10/22 05:59 30 mls/hr .Q24H KAREN Administration PFSH Anesthesia Medical History Fatigue No pertinent past medical history Denies: High blood pressure, Diabetes, heart, lung, liver,kidney, thyroid, bleeding problems, clotting problems. Primary Care Provider: Dr. Marcano Osteoarthritis Since 2001. Managed by her primary care provider Surgical History Hx of total knee arthroplasty 2016, left knee S/P carpal tunnel release Bilteral in 1984 S/P lumpectomy, left breast , benign per patient Status post knee surgery 2017, right knee surgery Status post surgery Patient had a hysteroscopy performed in 1979 for bleeding and infertility Family History Sister Diabetes Hyperlipidemia Hypertension Heart disease Ovarian cancer Diagnosed at age 72-73, mets to uterus Grandfather Diabetes paternal Brother Hyperlipidemia Hypertension Heart disease Mother Hyperlipidemia Stroke of same Hypertension Father Heart disease Hypertension Family/Other Breast cancer maternal aunt, age at diagnosis unknown Denies family history of Colon cancer Thyroid condition Social History Smoking and tobacco status: never smoked Data Anesthesia Cardiac Studies: No Data to Display
--- NOTE | 2022-10-09 06:59 | ANES.PROC ---
Anesthesia Procedures Procedure/Date: 10/09/22 Nerve Block ^: Nerve Block 1: Main Anesthesia: general anesthesia Time Out Performed: Yes Consent: requested by attending/covering physician, from patient, risks and benefits reviewed and patient agrees to proceed Nerve block location: popliteal (R) Anesthesia monitors applied: pulse oximetry, EKG, BP cuff and oxygen Nerve block position: supine Anesthetic Used: ropivicaine 0.5% (30) and with decadron (4 mg) Ultrasound used to: recognize landmarks Nerve Stimulator Used?: No Interscalene/Femoral BLK: 4 stimuplex 21 g needle used for position and inplane approach, visualize local anesthetic spread and no vascular puncture identified Injection: neg aspiration of heme Patient Tolerated Procedure: well Complications: none
[2022-10-09] MEDS: ceFAZolin 2,000 MG in sodium chloride 0.9% (plus) 50 ML 100 MG IV (07:00)
--- NOTE | 2022-10-09 07:46 | XR_ITS ---
WS: [id number] Exam: XR foot RT min 3V* [id number] Date/Time of Exam: 10/09/2022 8:01 AM Reason For Exam: post op right foot A single oblique coursing screws enters the first cuneiform and extends in the region of the proximal second third metatarsals. Previously noted fracture of the proximal third metatarsal difficult to id entify due to a posterior fiberglass cast. No other postoperative changes of the foot are identified.
--- NOTE | 2022-10-09 09:25 | P.OP_ITS ---
Operative Report Date of procedure: October 09, 2022 Pre-op diagnosis: Preop Diagnosis Lisfranc Fracture Dislocation right foot Post-op diagnosis: Same Post-op findings: Subtle Lisfranc injury right foot Procedure done: Percutaneous fixation of Lisfranc joint CPT 00137 Implants: One 4.0 partially-threaded cannulated screw from [employer] Specimens removed/disposition: None Pathology: None Surgeon: Christel WatsonPElizabeth Transmission System Operator: None Estimated blood loss: 5 mL No tourniquet used Complications: None Findings: See above Brief History: Patient sustained a right Lisfranc injury when she fell and landed on her right foot Procedure: Patient is a 72-year-old female that has a history of right foot Lisfranc injury. I discussed with the patient the instability of the injury to the right foot and that it would need open reduction internal fixation to stabilize the joint and prevent further complications. A lengthy discussion regarding the procedure, including risks and complications has been had with the patient and is noted in the recent clinic note. Written and verbal consent have been obtained. All patient questions have been answered to the patient?s satisfaction. No written or verbal guarantees have been given or implied. The patient has been NPO since midnight. The history has been reviewed and the history and physical is current. The signed consent was confirmed and placed in the patient chart. Patient imaging has been reviewed and is consistent with thediagnosis. Under mild sedation, the patient was brought into the operating room and placed on the table in the supine position. IV antibiotics were given by the anesthesia team as preoperative surgical prophylaxis. General sedation was then performed by the anesthesia team. A popliteal block was performed to the right lower extremity by the anesthesia department. The operative strategy was then prepped and draped in standard fashion. After prep the following procedure was then performed. Attention was directed to the right foot where under sterile fluoroscopy the first tarsometatarsal joint was identified. A 1.4 mm guidewire for a 4 cannulated screw was driven into the medial aspect of the medial cuneiform across the Lisfranc interval into the base of the second metatarsal. Good positioning of the wire was visualized on C-arm fluoroscopy both AP and lateral views. The Lisfranc joint complex is noted to be in the appropriate anatomical position at this point. Next, 2.7 mm drill bit was used to overdrilled the medial cuneiform before the 4.0 short threaded cannulated headed screw from [employer] was inserted over the wire and across the Lisfranc joint from the medial cuneiform to the second metatarsal base. Good positioning of the screw was noted on AP and lateral views. The guidewire was removed and the site was irrigated with sterile saline before attention was directed to closure. Incision site was closed with 4-0 nylon in horizontal mattress fashion and wound was dressed with Xeroform, 4 x 4 gauze, Kerlix before being placed in a well- padded below the knee posterior splint. The patient tolerated the procedure and anesthesia well and without complication. The patient was transported from the operating room to the recovery room with vital signs stable and vascular status intact to all digits of the right foot. The patient was given both written and verbal instructions to remain strict nonweightbearing to the operative extremity, to keep dressings/splint clean, dry and intact and to take pain medication as directed. The patient will follow-up in the outpatient setting at their scheduled appointment. The patient was discharged with my personal number and was instructed to call if any questions or issues should arise. They were discharged home once anesthesia criteria was met.
--- NOTE | 2022-10-09 12:35 | ANE.PACU2 ---
Inpatient post-anesthesia follow up: Airway intact: Yes Vital signs: Temperature 98.0 F Pulse Rate 90 Respiratory Rate 18 Blood Pressure 130/86 Pulse Oximetry 96 Oxygen Delivery Me thod Room Air Oxygen Flow Rate 2 Fraction of Inspir ed Oxygen Hydration adequate: Yes Nausea and vomiting: No Pain level: 1 Mental status: Baseline
== END 2022-10-09 09:00 | disposition home or self-care (01) ==
PROVIDERS: PCP Family Medicine; Visit Provider Podiatrist Foot & Ankle Surgery
PROC: (CPT 28606; principal; 2022-10-09 07:00)
DX: S93.324A Dislocation of tarsometatarsal joint of right foot, initial encounter (principal); X58.XXXA Exposure to other specified factors, initial encounter; E78.5 Hyperlipidemia, unspecified; M19.90 Unspecified osteoarthritis, unspecified site
CPT/HCPCS: 28606; 73630; 76000; C1713; J0690; J1100; J2704; J2795; J3010; J3490; J7030

== ENCOUNTER → 2022-10-22 10:41 | Outpatient (BNVA) | payer MEDICARE, SELFPAY | PROVIDERS: PCP Family Medicine; Visit Provider Podiatrist Foot & Ankle Surgery | DX: Z98.890 Other specified postprocedural states (principal); S93.326A Dislocation of tarsometatarsal joint of unspecified foot, initial encounter; X58.XXXA Exposure to other specified factors, initial encounter | CPT/HCPCS: 73630; 99024 ==

== ENCOUNTER 2022-10-27 12:00 | Outpatient (CLI) | payer MEDICARE, SELFPAY ==
[2022-10-27 13:00] LABS: Basophils % 0.2 %; Eosinophils # 0.1 10^3/uL (0.0-0.8); Eosinophils % 1.6 %; Hematocrit 42.3 % (37.0-47.0); Lymphocytes # 1.4 10^3/uL (0.8-4.8); Lymphocytes % 31.3 %; Mean Corpuscular HGB Conc 33.1 g/dL (30.0-36.0); Mean Corpuscular Hemoglobin 30.8 pg (28.0-34.0); Mean Corpuscular Volume 93.2 fl (81-99); Mean Platelet Volume 9.8 fL (7.4-10.4); Monocytes # 0.4 10^3/uL (0.2-0.9); Monocytes % 8.8 %; Neutrophils # 2.56 10^3/uL (1.8-7.7); Neutrophils % 57.6 %; Nucleated Red Blood Cells % 0 %; Platelet Count 217 10^3/cmm (130-400); Red Blood Count 4.54 10^6/uL (4.1-5.3); Red Cell Distribution Width 11.9 % (12.1-15.1); White Blood Count 4.4 10^3/uL (4.0-10.0)
[2022-10-27 13:12] LABS: Erythrocyte Sedimentation Rate 2 mm/hr (0-15)
[2022-10-27 13:18] LABS: Alanine Aminotransferase 9 U/L (0-33); Albumin Level 4.1 g/dL (3.5-5.2); Alkaline Phosphatase 107 U/L (35-105); Anion Gap 13.7 (5-19); Aspartate Amino Transferase 20 U/L (0-32); Blood Urea Nitrogen 10 mg/dL (8-23); Calcium 9.9 mg/dL (8.5-10.5); Carbon Dioxide 27 mmol/L (22-29); Chloride 102 mmol/L (98-107); Globulin 3.1 g/dL (1.3-4.6); Glucose 93 mg/dL (65-115); Osmolality Calculated 287 mOsm/kg (285-295); Potassium 3.7 mmol/L (3.5-5.1); Sodium 139 mmol/L (136-145); Total Bilirubin 0.3 mg/dL (0.15-1.2); Total Protein 7.2 g/dL (6.6-8.7)
== END 2022-10-27 12:01 | disposition home or self-care (01) ==
PROVIDERS: PCP Family Medicine; Visit Provider Internal Medicine
DX: M79.671 Pain in right foot (principal)
CPT/HCPCS: 36415; 80053; 85025; 85651; 86140

== ENCOUNTER → 2022-11-02 10:50 | Outpatient (BNVA) | payer MEDICARE, SELFPAY | PROVIDERS: PCP Family Medicine; Referring Provider Podiatrist Foot & Ankle Surgery; Visit Provider Student in an Organized Health Care Education/Training Program | DX: S83.281A Other tear of lateral meniscus, current injury, right knee, initial encounter (principal); W18.2XXA Fall in (into) shower or empty bathtub, initial encounter | CPT/HCPCS: 73562; 99204 ==

== ENCOUNTER → 2022-11-06 10:36 | Outpatient (BNVA) | payer MEDICARE, SELFPAY | PROVIDERS: PCP Family Medicine; Visit Provider Podiatrist Foot & Ankle Surgery | DX: Z98.890 Other specified postprocedural states (principal); R60.0 Localized edema; S93.321A Subluxation of tarsometatarsal joint of right foot, initial encounter; X58.XXXA Exposure to other specified factors, initial encounter | CPT/HCPCS: 99024 ==

== ENCOUNTER → 2022-11-20 09:53 | Outpatient (BNVA) | payer MEDICARE, SELFPAY | PROVIDERS: PCP Family Medicine; Visit Provider Podiatrist Foot & Ankle Surgery | DX: Z98.890 Other specified postprocedural states (principal); S93.326A Dislocation of tarsometatarsal joint of unspecified foot, initial encounter; R60.0 Localized edema; X58.XXXA Exposure to other specified factors, initial encounter | CPT/HCPCS: 73630; 99024 ==

== ENCOUNTER → 2022-11-30 09:02 | Outpatient (BNVA) | payer MEDICARE, SELFPAY | PROVIDERS: PCP Family Medicine; Visit Provider Student in an Organized Health Care Education/Training Program | DX: M19.011 Primary osteoarthritis, right shoulder (principal); M19.012 Primary osteoarthritis, left shoulder | CPT/HCPCS: 20610; 99213; J3301 ==

== ENCOUNTER → 2022-12-11 12:46 | Outpatient (BNVA) | payer MEDICARE, SELFPAY | PROVIDERS: PCP Family Medicine; Visit Provider Podiatrist Foot & Ankle Surgery | DX: Z98.890 Other specified postprocedural states (principal); S93.326A Dislocation of tarsometatarsal joint of unspecified foot, initial encounter; X58.XXXA Exposure to other specified factors, initial encounter; R60.0 Localized edema; M79.671 Pain in right foot | CPT/HCPCS: 73630; 99024 ==

== ENCOUNTER 2022-12-30 09:46 | Outpatient (CLI) | payer MEDICARE, SELFPAY ==
--- NOTE | 2022-12-30 10:15 | MR_ITS ---
WS: [id number] MRI RIGHT KNEE HISTORY: rule out menicus tear COMPARISON: Knee radiograph 11/02/2022 Anterior cruciate ligament: Not well visualized. There is significant artifact from the hemiarthropla sty. Posterior cruciate ligament: Poorly visualized due to the hemiarthroplasty. Medial collateral ligament: Obscured by the artifact. Posterior lateral corner structures: Abnormal signal throughout the posterior lateral corner structur es involving the fibular ligament and the popliteus tendon. No full-thickness tears. Medial menisci: Completely obscured by artifact. Lateral meniscus: Significantly obscured by artifact. Extensor mechanism: Distal quadriceps tendon and patellar tendons are intact. Fluid and soft tissue: Small suprapatellar joint effusion. No Lynch's cyst. There are small bodies po sterior to the femoral condyle with the largest measuring 14 mm. There is a smaller loose body or tameka trally located towards the intercondylar notch. Osseous and articular structures: Patellofemoral compartment: Mild joint space narrowing. Medial compartment: Medial compartment is obscured by artifact from the hemiarthroplasty. Lateral compartment: Mild narrowing of the lateral compartment with moderate chondromalacia. MR/MR knee RT wo con* [id number] IMPRESSION: 1. Status post LEFT medial hemiarthroplasty. 2. Study is significantly limited secondary to hardware artifact. 3. Poorly visualized ACL and PCL. 4. Small loose bodies posterior to the femoral condyles. The largest measures 14 mm. 5. Mild sprain involving the posterior lateral corner structures. 6. Moderate chondromalacia lateral compartment.
== END 2022-12-30 09:47 | disposition home or self-care (01) ==
PROVIDERS: PCP Family Medicine; Visit Provider Student in an Organized Health Care Education/Training Program
DX: M94.261 Chondromalacia, right knee (principal)
CPT/HCPCS: 73721

== ENCOUNTER → 2022-12-31 10:46 | Outpatient (BNVA) | payer MEDICARE, SELFPAY | PROVIDERS: PCP Family Medicine; Visit Provider Student in an Organized Health Care Education/Training Program | DX: M94.261 Chondromalacia, right knee (principal); Z96.651 Presence of right artificial knee joint | CPT/HCPCS: 20610; 99213; J3301 ==

== ENCOUNTER → 2023-01-04 08:18 | Outpatient (BNVA) | payer MEDICARE, SELFPAY | PROVIDERS: PCP Family Medicine; Visit Provider Podiatrist Foot & Ankle Surgery | DX: S86.219A Strain of muscle(s) and tendon(s) of anterior muscle group at lower leg level, unspecified leg, initial encounter (principal); S93.321A Subluxation of tarsometatarsal joint of right foot, initial encounter; X58.XXXA Exposure to other specified factors, initial encounter; M66.861 Spontaneous rupture of other tendons, right lower leg; Z98.890 Other specified postprocedural states; R60.0 Localized edema | CPT/HCPCS: 73630; 99214 ==

== ENCOUNTER 2023-01-07 10:37 | Outpatient (CLI) | payer MEDICARE, SELFPAY ==
--- NOTE | 2023-01-07 16:45 | MR_ITS ---
WS: [email or web address] EXAMINATION: MR foot RT wo con* [id number] ORDER DATE: 01/07/2023 11:05 AM COMPARISON: None. HISTORY: M66.869 - Spontaneous rupture of other tendons, unspecifi... CONTRAST: None. TECHNIQUE: Sagittal T1, sagittal STIR, coronal PD, coronal T2, axial T1, axial T2, and axial PD imagi ng with fat saturation technique. FINDINGS: Tenosynovitis with T2 signal abnormality and fluid along the tibialis anterior. High-grade complete tear of the distal tibialis anterior. This appears retracted from the insertion at the base of the 1st TMT to the level of the talar neck. Extensor hallucis longus and extensor digitorum longus appear intact. Flexor compartment tendons are intact with tenosynovitis along the tibialis posterior and flexor hallucis longus. Small amount of tenosynovitis along the peroneal tendon sheath. Peroneal tendons appear intact. Dista l Achilles is intact. Prior postoperative changes screw fixation across the medial cuneiform and 2nd metatarsal. Osteopenia. Normal ankle mortise. Small amount of subchondral cystic change and edema inv olving the medial aspect of the talar dome. Findings suspicious for early AVN. No subchondral collaps e. Small joint effusion. Degenerative changes involving the tarsal and intertarsal bones. Deltoid lig ament appears intact. ATF appears intact. MR/MR foot RT wo con* [id number] IMPRESSION: 1. High-grade complete tear with retraction involving the tibialis anterior. T endon is retracted to the level of the talar neck. 2. Extensor and flexor compartment tendons are otherwise intact with tenosynov itis. 3. Tenosynovitis along the peroneal tendon sheath. 4. Distal Achilles is intact. 5. Prior postoperative changes screw fixation medial cuneiform extending acros s the base of the 2nd metatarsal. 6. Osteochondral injury with Subchondral cystic change and edema in the medial talar dome. No evidence of subchondral collapse. Findings suspicious for early avascular necrosis.
== END 2023-01-07 10:38 | disposition home or self-care (01) ==
PROVIDERS: PCP Family Medicine; Visit Provider Podiatrist Foot & Ankle Surgery
DX: M66.869 Spontaneous rupture of other tendons, unspecified lower leg (principal); S96.811A Strain of other specified muscles and tendons at ankle and foot level, right foot, initial encounter; X58.XXXA Exposure to other specified factors, initial encounter; M65.871 Other synovitis and tenosynovitis, right ankle and foot
CPT/HCPCS: 73718

== ENCOUNTER → 2023-01-08 13:39 | Outpatient (BNVA) | payer MEDICARE, SELFPAY | PROVIDERS: PCP Family Medicine; Visit Provider Podiatrist Foot & Ankle Surgery | DX: Z98.890 Other specified postprocedural states (principal); S93.321A Subluxation of tarsometatarsal joint of right foot, initial encounter; S86.211A Strain of muscle(s) and tendon(s) of anterior muscle group at lower leg level, right leg, initial encounter; X58.XXXA Exposure to other specified factors, initial encounter | CPT/HCPCS: 99214 ==

== ENCOUNTER 2023-01-14 08:41 | Day surgery (SDC) | payer MEDICARE, SELFPAY ==
[2023-01-13 10:53] VITALS: BMI 28.5
[2023-01-14] VITALS (9 sets, daily range): BP systolic 130–145; BP diastolic 71–88; PULSE 76–96; RESP 9–20; TEMP 36.6–37.2; O2SAT 93–99
--- NOTE | 2023-01-14 | XR_ITS ---
WS: [email or web address] Right foot, C-arm fluoroscopy views, 01/14/2023 Clinical Data: CINDY PICS Comparison: None. Findings: C-arm fluoroscopy views of the right foot showing oblique screw from first cuneiform into the base of the right second metatarsal XR/XR foot RT 2V [id number] Impression: Oblique screw from the right first cuneiform into the base of the second metata rsal
[2023-01-14] MEDS: sodium chloride 0.9% 1,000 ML 30 ML IV (09:27)
[2023-01-14] MEDS: acetaminophen 1,000 MG/100 ML PIGGYBACK 400 MG IV (09:28)
[2023-01-14] MEDS: gabapentin 300 mg Capsule PO (09:28)
--- NOTE | 2023-01-14 09:47 | ANES.PREANE2 ---
Pre-Anesthetic Assessment Height/Weight: Height 1.6 m Weight 73.028 kg Temp Pulse Resp BP Pulse Ox O2 Del Method 97.9 F 87 18 130/71 94 01/14/23 09:14 01/14/23 09:14 01/14/23 09:14 01/14/23 09:14 01/14/23 09:14 01/14/23 09:15 Preop Diagnosis: Painful hardware right foot, ruptured anterior tibialis tendon right Operation Date: 01/14/23 10:30 Proposed Procedures s Repair Right tibialis anterior tendon rupture CPT 11853 2. Deep hardware removal right foot CPT 78672,M66.261,T84.84XA(Right) - Jermaine Hurtado DPM p Deep hardware removal right foot CPT 11432(Right) - Jermaine Hurtado DPM Familial anesthetic complications: None Was Beta Edward taken within 24 hours: N/A Was Clonidine taken within 24 hours: N/A Last intake: Intake Last Liquid Date 01/13/23 Last Liquid Time 23:00 Last Solid Date 01/13/23 Last Solid Time 19:35 Social No alcohol and No tobacco Exam alert, oriented x 3, clear to auscultation bilaterally and regular rate & rhythm Airway Mallampati: Class II Dentition: full Metabolic Hyperlipidemia Musc/[facility] Osteoarthritis/DJD Anesthetic Plan ASA status: 2 Anesthesia: General Risk of > 500 ml blood loss (7ml/kg in children): No Medications/Allergies Home Medications Medication Instructions Recorded Confirmed Last Taken Type diphenhydramine HCl 25 mg capsule 25 mg PO DAILY PRN Sleep 06/05/20 01/14/23 01/13/23 History (Allergy (diphenhydramine)) ascorbate calcium (vitamin C) 500 500 mg PO DAILY 04/08/21 01/13/23 01/13/23 History mg tablet mecobalamin (vitamin B12) 1,000 1,000 mcg PO DAILY 04/08/21 01/13/23 01/13/23 History mcg chewable tablet tumeric 100 mg-elisabeth 150 mg-olive 100 cap PO 1XD 08/04/21 01/14/23 12/23/22 History 50 mg-oreg 150 mg-caprylate capsule diclofenac sodium 1 % topical gel 2 g topical QID PRN Pain 12/22/21 01/14/23 12/23/22 History cholecalciferol (vitamin D3) 25 25 mcg PO DAILY 02/10/22 01/13/23 01/12/23 History mcg (1,000 unit) capsule folic acid 400 mcg tablet 0.4 mg PO DAILY 02/10/22 01/13/23 01/13/23 History diclofenac potassium 50 mg tablet 50 mg PO BID #180 tabs 05/11/22 01/14/23 01/13/23 Rx lorazepam 1 mg tablet 1 mg PO DAILY PRN anxiety #30 tabs 07/26/22 01/13/23 01/13/23 Rx tramadol 50 mg tablet 50 mg PO BID PRN Pain 10/05/22 01/14/23 10/08/22 History ammonium lactate 12 % topical cream 1 applic topical DAILY PRN dry 10/09/22 01/14/23 12/30/22 Rx skin #280 grams Knee scooter #1 ea 01/08/23 01/08/23 Unknown Rx Allergies Allergy/AdvReac Type Severity Reaction Status Date / Time metaxalone [From Skelaxin] Allergy Rash Verified 01/14/23 09:08 methylprednisolone Allergy itching Verified 01/14/23 09:08 [From Depo-Medrol] triamcinolone Allergy itching Verified 01/14/23 09:08 Current Medications Generic Name Dose Route Start Last Admin Trade Name Freq PRN Reason Stop Dose Admin Sodium Chloride 1,000 mls @ 30 mls/hr 01/14/23 09:00 01/14/23 09:27 Sodium Chloride 0.9% IV 01/15/23 08:59 30 mls/hr .Q24H KAREN Administration PFSH Anesthesia Medical History Acute lateral meniscus tear of right knee Chondromalacia, right knee Fatigue No pertinent past medical history Denies: High blood pressure, Diabetes, heart, lung, liver,kidney, thyroid, bleeding problems, clotting problems. Primary Care Provider: Dr. Marcano Osteoarthritis Since 2001. Managed by her primary care provider Osteoarthritis of shoulders, bilateral Surgical History Hx of total knee arthroplasty 2016, left knee S/P carpal tunnel release Bilteral in 1984 S/P lumpectomy, left breast 1970s, benign per patient Status post knee surgery 2017, right knee surgery Status post surgery Patient had a hysteroscopy performed in 1979 for bleeding and infertility Family History Sister Diabetes Hyperlipidemia Hypertension Heart disease Ovarian cancer Diagnosed at age 72-73, mets to uterus Grandfather Diabetes paternal Brother Hyperlipidemia Hypertension Heart disease Mother Hyperlipidemia Stroke of same Hypertension Father Heart disease Hypertension Family/Other Breast cancer maternal aunt, age at diagnosis unknown Denies family history of Colon cancer Thyroid condition Social History Smoking and tobacco status: never smoked Data Anesthesia Cardiac Studies: No Data to Display
--- NOTE | 2023-01-14 11:11 | W.PM.OPSUD ---
Surgery/Procedure H&P Update DATE OF PROCEDURE: January 14, 2023 DATE H&P PERFORMED: 01/08/23 CHANGES TO PREVIOUS DOCUMENTATION: No changes PREOP DIAGNOSIS: Painful hardware right foot, ruptured anterior tibialis tendon right PRIMARY INDICATION FOR PROCEDURE: Right tibialis anterior tendon rupture PLANNED PROCEDURE: Operation Date: 01/14/23 10:30 Proposed Procedures s Repair Right tibialis anterior tendon rupture CPT 75793 2. Deep hardware removal right foot CPT 96393,M66.261,T84.84XA(Right) - Jermaine Hurtado DPM p Deep hardware removal right foot CPT 91486(Right) - Jermaine Hurtado DPM
[2023-01-14] MEDS: ceFAZolin 2,000 MG in sodium chloride 0.9% (plus) 50 ML 100 MG IV (11:31)
[2023-01-14] MEDS: fentaNYL 50 mcg/mL INJ 2mL IVP (13:13)
--- NOTE | 2023-01-14 13:33 | ANE.PACU2 ---
Inpatient post-anesthesia follow up: Airway intact: Yes Vital signs: Temperature 98.4 F Pulse Rate 90 Respiratory Rate 20 Blood Pressure 145/87 Pulse Oximetry 93 Oxygen Delivery Me thod Room Air Oxygen Flow Rate 6 Fraction of Inspir ed Oxygen Hydration adequate: Yes Nausea and vomiting: No Pain level: 1 Mental status: Baseline
--- NOTE | 2023-01-14 13:45 | PM.OP ---
Operative Report Date of procedure: January 14, 2023 Pre-op diagnosis: Preop Diagnosis Painful hardware right foot, ruptured anterior tibialis tendon right Post-op diagnosis: Same Post-op findings: Ruptured anterior tibial tendon of right foot with retraction to the level of the ankle mortise. An adequate length of rupture tendon to fixate the medial cuneiform. Given length it was necessary to anchor into navicular. Procedure done: 1. Right tibialis anterior tendon repair CPT 03242 2. Deep hardware removal right foot CPT 77501 Implants: 1 swivel lock anchor from [employer] Specimens removed/disposition: None Pathology: None Surgeon: Dr. Jermaine Hurtado D.P.M. Estimated blood loss: 20 cc 60 minutes Complications: None Findings: See above Procedure: Patient is a 72-year-old female that has a history of right tibialis anterior tendon rupture and painful retained orthopedic hardware right foot. The extent of the rupture requires repair. A lengthy discussion regarding the procedure, including risks and complications has been had with the patient and is noted in the recent clinic note. Written and verbal consent have been obtained. All patient questions have been answered to the patient?s satisfaction. No written or verbal guarantees have been given or implied. The patient has been NPO since midnight. The history has been reviewed and the history and physical is current. The signed consent was confirmed and placed in the patient chart. Patient imaging has been reviewed and is consistent with the diagnosis. Under mild sedation, the patient was brought into the operating room and placed on the table in the supine position. IV antibiotics were given by the anesthesia team as preoperative surgical prophylaxis. General sedation was then performed by the anesthesia team. A pneumatic tourniquet was then placed about the right thigh. A ring ankle block was performed using 0.5% Marcaine plain. The operative extremity was then prepped and draped in the usual fashion. The extremity was then elevated and exsanguinated before the tourniquet was inflated to 325 mmHg. After inflation, the following procedure was then performed. Attention was directed to the dorsomedial aspect of the right foot where a 7 cm incision was made over the course of the tibialis anterior. Dissection was carried down through subcutaneous and superficial fascia. The tendon sheath was visualized and was noted to be darkened and discolored with retraction of the tendon. This was incised using #15 blade. The tibialis anterior tendon was then visualized and grasped with an Allis and pulled distally. The end of the tendon was noted to be frayed and degenerative. The degenerative portions of the tendon were excised and using FiberWire the tendon was whipstitched in standard fashion. Attention was then directed to the medial cuneiform. Dissection was carried out to expose the implanted screw and washer. This was then removed without incident. This was confirmed on C-arm imaging. Next a preparation for the tendon transfer the wire was driven into the medial cuneiform from dorsal to plantar and overdrilled. The tendon was then pulled through the glide hole and was noted to be too short. There was noted to be not enough tendon length to transfer to the medial cuneiform. Attention was then directed to the navicular where again the wire was driven from dorsal to plantar in the body of the navicular before being overdrilled. Care was taken to avoid adjacent joints. The tendon was then pulled into the tenodesis hole of the navicular. A tenodesis screw was then inserted into the hole to lock the tendon into place. The construct was noted to be stable. The site was then irrigated with copious months of sterile saline. Attention was then directed to closure. Deep tissues closed with 3-0 Vicryl followed by subcuticular closure with 4-0 Vicryl and skin closed with 4-0 nylon in running interlocking fashion. The tourniquet was let down and good hyperemic response was noted to all digits of the right foot. The incision site was dressed with Xeroform, 4 x 4 gauze, Kerlix. The right lower extremity was then placed in a well-padded below the knee posterior splint. The patient tolerated the procedure and anesthesia well and without complication. The patient was transported from the operating room to the recovery room with vital signs stable and vascular status intact to all digits of the right foot. The patient was given both written and verbal instructions to remain strict nonweightbearing to the operative extremity, to keep dressings/splint clean, dry and intact and to take pain medication as directed. The patient will follow-up in the outpatient setting at their scheduled appointment. The patient was discharged with my personal number and was instructed to call if any questions or issues should arise. They were discharged home once anesthesia criteria was met.
[2023-01-14] MEDS: HYDROcodone-acetaminophen 5-325 mg Tablet 1 TAB PO (13:52)
== END 2023-01-14 15:30 | disposition home or self-care (01) ==
PROVIDERS: PCP Family Medicine; Visit Provider Podiatrist Foot & Ankle Surgery
PROC: (CPT 20680; principal; 2023-01-14 10:10)
PROC: (CPT 20680; 2023-01-14 10:10)
DX: M66.261 Spontaneous rupture of extensor tendons, right lower leg (principal); T84.84XA Pain due to internal orthopedic prosthetic devices, implants and grafts, initial encounter; Y83.8 Other surgical procedures as the cause of abnormal reaction of the patient, or of later complication, without mention of misadventure at the time of the procedure
CPT/HCPCS: 20680; 27664; 73620; 76000; C1713; J0131; J0690; J1100; J1170; J1200; J2370; J2405; J2704; J3010; J3490; J7030

== ENCOUNTER → 2023-01-18 08:59 | Outpatient (BNVA) | payer MEDICARE, SELFPAY | PROVIDERS: PCP Family Medicine; Visit Provider Student in an Organized Health Care Education/Training Program | DX: M19.011 Primary osteoarthritis, right shoulder (principal); M19.012 Primary osteoarthritis, left shoulder | CPT/HCPCS: 99213 ==

== ENCOUNTER → 2023-01-29 12:57 | Outpatient (BNVA) | payer MEDICARE, SELFPAY | PROVIDERS: PCP Family Medicine; Visit Provider Podiatrist Foot & Ankle Surgery | DX: Z98.890 Other specified postprocedural states (principal); S93.326A Dislocation of tarsometatarsal joint of unspecified foot, initial encounter; S86.211A Strain of muscle(s) and tendon(s) of anterior muscle group at lower leg level, right leg, initial encounter; X58.XXXA Exposure to other specified factors, initial encounter | CPT/HCPCS: 99024 ==

== ENCOUNTER 2023-02-03 09:58 | Outpatient (CLI) | payer MEDICARE, SELFPAY ==
[2023-02-03 10:34] LABS: Erythrocyte Sedimentation Rate 4 mm/hr (0-15)
[2023-02-03 10:38] LABS: Basophils % 0.2 %; Eosinophils # 0.1 10^3/uL (0.0-0.8); Eosinophils % 1.9 %; Hemoglobin 13.4 g/dL (11.5-15.3); Lymphocytes # 1.3 10^3/uL (0.8-4.8); Lymphocytes % 24.5 %; Mean Corpuscular HGB Conc 32.7 g/dL (30.0-36.0); Mean Corpuscular Hemoglobin 30.2 pg (28.0-34.0); Mean Corpuscular Volume 92.6 fl (81-99); Mean Platelet Volume 9.6 fL (7.4-10.4); Monocytes # 0.5 10^3/uL (0.2-0.9); Monocytes % 8.9 %; Neutrophils # 3.33 10^3/uL (1.8-7.7); Neutrophils % 64.1 %; Nucleated Red Blood Cells % 0 %; Platelet Count 266 10^3/cmm (130-400); Red Blood Count 4.43 10^6/uL (4.1-5.3); White Blood Count 5.2 10^3/uL (4.0-10.0)
[2023-02-03 11:15] LABS: Alanine Aminotransferase 25 U/L (0-33); Albumin Level 4.5 g/dL (3.5-5.2); Alkaline Phosphatase 89 U/L (35-105); Anion Gap 13.2 (5-19); Aspartate Amino Transferase 31 U/L (0-32); Blood Urea Nitrogen 16 mg/dL (8-23); Calcium 9.7 mg/dL (8.5-10.5); Carbon Dioxide 28 mmol/L (22-29); Chloride 104 mmol/L (98-107); Globulin 2.1 g/dL (1.3-4.6); Glucose 85 mg/dL (65-115); Osmolality Calculated 292 mOsm/kg (285-295); Potassium 4.2 mmol/L (3.5-5.1); Sodium 141 mmol/L (136-145); Total Bilirubin 0.3 mg/dL (0.15-1.2); Total Protein 6.6 g/dL (6.6-8.7)
== END 2023-02-03 09:59 | disposition home or self-care (01) ==
PROVIDERS: PCP Family Medicine; Visit Provider Internal Medicine
DX: M19.90 Unspecified osteoarthritis, unspecified site (principal)
CPT/HCPCS: 36415; 80053; 85025; 85651; 86140

== ENCOUNTER 2023-02-08 14:36 | Outpatient (CLI) | payer MEDICARE, SELFPAY ==
--- NOTE | 2023-02-08 15:00 | XR_ITS ---
WS: [email or web address] SCREENING DEXA SCAN [employer] CLINICAL INFORMATION: bone density requested by medicare COMPARISON: None. FINDINGS: The L1-L4 bone mineral density measures 1.330 g/cm2. This corresponds to a T score score of 1.3 and Z score of 2.7. Left femoral neck bone mineral density measures 0.855 g/cm2. This corresponds to a T score of -1.2 an d Z score of 0.3. Right femoral neck bone mineral density measures 0.762 g/cm2. This corresponds to a T score -1.9of an d Z score of -0.4. Mean femoral neck bone mineral density measures 0.809 g/cm2. This corresponds to a T score of -1.6 an d Z score of -0.1. XR/XR DEXA axial skeleton* [id number] IMPRESSION: Normal bone mineralization lumbar spine. Osteopenia femoral necks. Patient's FRAX calculated 10 year probability for major osteoporotic fracture i s 24.4 % and osteoporotic hip fracture is 7.3%. Bone mineral density increase in the lumbar spine 7.2% since 2016 Bone mineral density in the femoral necks decreased -12.4% since 2016
== END 2023-02-08 14:37 | disposition home or self-care (01) ==
LOC: RAD 14:39
PROVIDERS: PCP Family Medicine; Visit Provider Family Medicine
DX: M19.90 Unspecified osteoarthritis, unspecified site (principal); M94.261 Chondromalacia, right knee; M85.852 Other specified disorders of bone density and structure, left thigh; M85.851 Other specified disorders of bone density and structure, right thigh
CPT/HCPCS: 77080

== ENCOUNTER → 2023-02-09 10:47 | Outpatient (BNVA) | payer MEDICARE, SELFPAY | PROVIDERS: PCP Family Medicine; Visit Provider Internal Medicine | DX: Z15.89 Genetic susceptibility to other disease (principal); M19.90 Unspecified osteoarthritis, unspecified site; M54.50 Low back pain, unspecified | CPT/HCPCS: 99213 ==

== ENCOUNTER → 2023-02-18 13:30 | Outpatient (BNVA) | payer MEDICARE, SELFPAY | PROVIDERS: PCP Family Medicine; Visit Provider Podiatrist Foot & Ankle Surgery | DX: S86.211A Strain of muscle(s) and tendon(s) of anterior muscle group at lower leg level, right leg, initial encounter (principal); X58.XXXA Exposure to other specified factors, initial encounter; R60.0 Localized edema | CPT/HCPCS: 99024 ==

== ENCOUNTER → 2023-03-01 09:07 | Outpatient (BNVA) | payer MEDICARE, SELFPAY | PROVIDERS: PCP Family Medicine; Visit Provider Student in an Organized Health Care Education/Training Program | DX: M19.011 Primary osteoarthritis, right shoulder (principal); M19.012 Primary osteoarthritis, left shoulder | CPT/HCPCS: 20610; 99213; J3301 ==

== ENCOUNTER 2023-03-02 14:15 | Outpatient (CLI) | payer MEDICARE, SELFPAY ==
[2023-03-02 15:37] LABS: Chol HDL Ratio 3.78 mg/dL (0.0-4.40); Cholesterol 257 mg/dL (0-200); HDL Cholesterol 68 mg/dL (60-100); LDL Cholesterol Calculated 171 mg/dL (50-129); LDL HDL Ratio 2.51 RATIO (0.00-3.22); Triglycerides 92 mg/dL (0-150)
== END 2023-03-02 14:16 | disposition home or self-care (01) ==
LOC: LAB 14:21
PROVIDERS: PCP Family Medicine; Visit Provider Family Medicine
DX: E78.2 Mixed hyperlipidemia (principal)
CPT/HCPCS: 36415; 80061

== ENCOUNTER → 2023-03-04 13:28 | Outpatient (BNVA) | payer MEDICARE, SELFPAY | PROVIDERS: PCP Family Medicine; Visit Provider Podiatrist Foot & Ankle Surgery | DX: Z98.890 Other specified postprocedural states (principal); S86.211A Strain of muscle(s) and tendon(s) of anterior muscle group at lower leg level, right leg, initial encounter; X58.XXXA Exposure to other specified factors, initial encounter; R60.0 Localized edema | CPT/HCPCS: 99024 ==

== ENCOUNTER 2023-03-17 10:19 | Outpatient (RCR) | payer MEDICARE, SELFPAY | END 2023-03-21 23:59 | disposition home or self-care (01) | LOC: SPT 10:19 | PROVIDERS: PCP Family Medicine; Visit Provider Podiatrist Foot & Ankle Surgery | DX: M66.9 Spontaneous rupture of unspecified tendon (principal) | CPT/HCPCS: 97110; 97161 ==

== ENCOUNTER 2023-03-22 06:00 | Outpatient (RCR) | payer MEDICARE, SELFPAY | END 2023-04-15 23:59 | disposition home or self-care (01) | LOC: SPT 06:00 | PROVIDERS: PCP Family Medicine; Visit Provider Podiatrist Foot & Ankle Surgery | DX: Z47.89 Encounter for other orthopedic aftercare (principal); R53.1 Weakness | CPT/HCPCS: 97110 ==

== ENCOUNTER → 2023-04-09 08:24 | Outpatient (BNVA) | payer MEDICARE, SELFPAY | PROVIDERS: PCP Family Medicine; Visit Provider Family Medicine | DX: R53.83 Other fatigue (principal); R20.8 Other disturbances of skin sensation; E78.2 Mixed hyperlipidemia; M85.80 Other specified disorders of bone density and structure, unspecified site | CPT/HCPCS: 80053; 82306; 82607; 83735; 84443; 85025 ==

== ENCOUNTER → 2023-04-29 07:10 | Outpatient (BNVA) | payer MEDICARE, SELFPAY | PROVIDERS: PCP Family Medicine; Visit Provider Student in an Organized Health Care Education/Training Program | DX: M94.261 Chondromalacia, right knee (principal); Z96.651 Presence of right artificial knee joint | CPT/HCPCS: 20610; 99213; J3301 ==

== ENCOUNTER → 2023-05-04 12:58 | Outpatient (BNVA) | payer MEDICARE, SELFPAY | PROVIDERS: PCP Family Medicine; Visit Provider Podiatrist Foot & Ankle Surgery | DX: G57.91 Unspecified mononeuropathy of right lower limb (principal) | CPT/HCPCS: 99213 ==

== ENCOUNTER 2023-06-07 13:51 | Outpatient (CLI) | payer MEDICARE, SELFPAY ==
--- NOTE | 2023-06-07 14:25 | MM_ITS ---
WS: [email or web address] BILATERAL 3D TOMOSYNTHESIS DIGITAL SCREENING MAMMOGRAPHY WITH CAD CLINICAL INFORMATION: SCREENING HISTORY: Screening mammogram. No current complaints. COMPARISON: 2021 TECHNIQUE: Bilateral CC and MLO views. FINDINGS: The breasts are composed of heterogeneous fibroglandular density tissue, which can limit the detectio n of small underlying mass lesions. No suspicious mass, asymmetry, calcifications, or architectural d istortion. No evidence of malignancy. Biopsy clip LEFT breast. Vascular calcification. MM/[place] [id number] IMPRESSION: BI-RADS: 2-Benign FOLLOW UP: 1 Year Follow-up Recommend return to annual screening mammography.
== END 2023-06-07 13:52 | disposition home or self-care (01) ==
LOC: RAD 13:54 → MOBLMAM 14:23
PROVIDERS: PCP Family Medicine; Visit Provider Family Medicine
DX: Z12.31 Encounter for screening mammogram for malignant neoplasm of breast (principal)
CPT/HCPCS: 77063; 77067

== ENCOUNTER → 2023-06-11 10:33 | Outpatient (BNVA) | payer MEDICARE, SELFPAY | PROVIDERS: PCP Family Medicine; Visit Provider Student in an Organized Health Care Education/Training Program | DX: M19.011 Primary osteoarthritis, right shoulder (principal); M19.012 Primary osteoarthritis, left shoulder | CPT/HCPCS: 20610; 99213; J3301 ==

== ENCOUNTER 2023-07-05 10:40 | Outpatient (CLI) | payer MEDICARE, SELFPAY ==
[2023-07-05 11:32] LABS: Basophils % 0.3 %; Eosinophils # 0.1 10^3/uL (0.0-0.8); Eosinophils % 1.6 %; Hematocrit 41.5 % (37.0-47.0); Hemoglobin 13.5 g/dL (11.5-15.3); Lymphocytes # 1.4 10^3/uL (0.8-4.8); Lymphocytes % 19.8 %; Mean Corpuscular HGB Conc 32.5 g/dL (30.0-36.0); Mean Corpuscular Hemoglobin 30.2 pg (28.0-34.0); Mean Corpuscular Volume 92.8 fl (81-99); Monocytes # 0.6 10^3/uL (0.2-0.9); Monocytes % 9.1 %; Neutrophils # 4.78 10^3/uL (1.8-7.7); Neutrophils % 68.6 %; Nucleated Red Blood Cells % 0 %; Platelet Count 224 10^3/cmm (130-400); Red Blood Count 4.47 10^6/uL (4.1-5.3); Red Cell Distribution Width 12.5 % (12.1-15.1)
[2023-07-05 11:41] LABS: Alanine Aminotransferase 20 U/L (0-33); Albumin Level 4.2 g/dL (3.5-5.2); Alkaline Phosphatase 85 U/L (35-105); Anion Gap 13.5 (5-19); Aspartate Amino Transferase 23 U/L (0-32); Blood Urea Nitrogen 17 mg/dL (8-23); Calcium 8.9 mg/dL (8.5-10.5); Carbon Dioxide 25 mmol/L (22-29); Chloride 105 mmol/L (98-107); Glucose 101 mg/dL (65-115); Osmolality Calculated 290 mOsm/kg (285-295); Potassium 4.5 mmol/L (3.5-5.1); Sodium 139 mmol/L (136-145); Total Bilirubin 0.4 mg/dL (0.15-1.2); Total Protein 6.2 g/dL (6.6-8.7)
[2023-07-05 11:44] LABS: Erythrocyte Sedimentation Rate 7 mm/hr (0-15)
== END 2023-07-05 10:41 | disposition home or self-care (01) ==
PROVIDERS: PCP Family Medicine; Visit Provider Internal Medicine
DX: Z79.899 Other long term (current) drug therapy (principal); M19.90 Unspecified osteoarthritis, unspecified site
CPT/HCPCS: 36415; 80053; 85025; 85651; 86140

== ENCOUNTER → 2023-07-07 11:07 | Outpatient (BNVA) | payer MEDICARE, SELFPAY | PROVIDERS: PCP Family Medicine; Visit Provider Internal Medicine | DX: Z96.651 Presence of right artificial knee joint (principal); M19.011 Primary osteoarthritis, right shoulder; M19.012 Primary osteoarthritis, left shoulder; M54.50 Low back pain, unspecified; M25.50 Pain in unspecified joint | CPT/HCPCS: 36415; 72100; 73560; 73620; 83520; 84207; 86480; 99214 ==

== ENCOUNTER → 2023-07-15 13:38 | Outpatient (BNVA) | payer MEDICARE, SELFPAY | PROVIDERS: PCP Family Medicine; Visit Provider Dermatology | DX: L57.0 Actinic keratosis (principal); L81.4 Other melanin hyperpigmentation; L82.1 Other seborrheic keratosis; L57.8 Other skin changes due to chronic exposure to nonionizing radiation | CPT/HCPCS: 17000; 17003; 99213 ==

== ENCOUNTER → 2023-07-19 12:29 | Outpatient (BNVA) | payer MEDICARE, SELFPAY | PROVIDERS: PCP Family Medicine; Visit Provider Podiatrist Foot & Ankle Surgery | DX: M79.671 Pain in right foot (principal); M77.51 Other enthesopathy of right foot and ankle | CPT/HCPCS: 99213 ==

== ENCOUNTER → 2023-08-30 13:12 | Outpatient (BNVA) | payer MEDICARE, SELFPAY | PROVIDERS: PCP Family Medicine; Visit Provider Podiatrist Foot & Ankle Surgery | DX: B35.3 Tinea pedis; M77.51 Other enthesopathy of right foot and ankle; M79.671 Pain in right foot | CPT/HCPCS: 99213 ==

== ENCOUNTER → 2023-09-02 09:00 | Outpatient (BNVA) | payer MEDICARE, SELFPAY | PROVIDERS: PCP Family Medicine; Visit Provider Anesthesiology Pain Medicine | DX: M51.16 Intervertebral disc disorders with radiculopathy, lumbar region; M79.605 Pain in left leg | CPT/HCPCS: 99204 ==

== ENCOUNTER → 2023-09-16 13:18 | Outpatient (BNVA) | payer MEDICARE, SELFPAY | PROVIDERS: PCP Family Medicine; Visit Provider Anesthesiology Pain Medicine | DX: M51.16 Intervertebral disc disorders with radiculopathy, lumbar region (principal); M47.816 Spondylosis without myelopathy or radiculopathy, lumbar region | CPT/HCPCS: 64483; 64484; J1100; J3490; Q9967 ==

== ENCOUNTER → 2023-09-20 14:56 | Outpatient (BNVA) | payer MEDICARE, SELFPAY | PROVIDERS: PCP Family Medicine; Visit Provider Family Medicine | DX: J06.9 Acute upper respiratory infection, unspecified (principal) | CPT/HCPCS: 87426 ==

== ENCOUNTER 2023-09-30 09:54 | Outpatient (CLI) | payer MEDICARE, SELFPAY ==
--- NOTE | 2023-09-30 10:15 | MR_ITS ---
WS: [email or web address] MRI LUMBAR SPINE NONCONTRAST TECHNIQUE: Sagittal T1, T2 and STIR imaging. Axial T1 and T2 imaging. CLINICAL INFORMATION: M54.16 - Radiculopathy, lumbar region COMPARISON: None. FINDINGS: Mild lumbar curve. No acute compression. Slight anterolisthesis L4 on L5. Disc space narrowing worse at L1-L3. L1-L2: Small RIGHT paracentral protrusion. Mild central canal stenosis. Mild RIGHT foraminal narrowin g. Moderate facet arthropathy. L2-L3: Disc osteophyte complex with endplate ridging. Narrowing of the subarticular recess bilaterall y. Moderate facet arthropathy. Moderate LEFT foraminal narrowing. L3-L4: Slight retrolisthesis. Mild disc bulging with mild central canal stenosis. Impingement bill ing L4 nerve roots. Mild RIGHT greater than LEFT foraminal narrowing. Moderate facet arthropathy. L4-L5: Grade 1 anterolisthesis. Disc bulging in facet arthropathy and ligamentum flavum hypertrophy r esults in severe central canal stenosis. Severe LEFT and mild RIGHT foraminal narrowing. Impingement traversing L5 nerve roots. L5-S1: Slight anterolisthesis. Mild disc bulge and osteophytic ridging. Impingement traversing RIGHT greater than LEFT S1 nerve roots. Severe RIGHT and mild LEFT foraminal narrowing. Visualized pelvic bony structures: Normal. Paravertebral soft tissues: Normal. Small central protrusions C5-C6 and C6-C7. Mild central canal stenosis. Small bilateral renal cysts. IMPRESSION: 1. Mild lumbar curve. No acute compression. Slight anterolisthesis L4 on L5. 2. Severe central canal stenosis L4-5 due to disc bulging, in combination with facet arthropathy and ligamentum flavum hypertrophy. 3. Severe LEFT L4-5 and RIGHT L5-S1 foraminal narrowing. 4. Mild central canal stenosis L1-2 and L3-4.
== END 2023-09-30 09:55 ==
LOC: RAD 09:54
PROVIDERS: PCP Family Medicine; Visit Provider Anesthesiology Pain Medicine
DX: M54.16 Radiculopathy, lumbar region (principal); M54.50 Low back pain, unspecified
CPT/HCPCS: 64483; 64484; 72148; J1100; J3490

== ENCOUNTER → 2023-10-05 08:04 | Outpatient (BNVA) | payer MEDICARE, SELFPAY | PROVIDERS: PCP Family Medicine; Visit Provider Student in an Organized Health Care Education/Training Program | DX: M19.011 Primary osteoarthritis, right shoulder (principal); M19.012 Primary osteoarthritis, left shoulder; M25.561 Pain in right knee; M25.562 Pain in left knee; G89.29 Other chronic pain; M94.261 Chondromalacia, right knee; Z96.651 Presence of right artificial knee joint | CPT/HCPCS: 99213 ==

== ENCOUNTER → 2023-10-20 09:03 | Outpatient (BNVA) | payer MEDICARE, SELFPAY | PROVIDERS: PCP Family Medicine; Visit Provider Anesthesiology Pain Medicine | DX: M51.16 Intervertebral disc disorders with radiculopathy, lumbar region; M48.061 Spinal stenosis, lumbar region without neurogenic claudication; M47.816 Spondylosis without myelopathy or radiculopathy, lumbar region | CPT/HCPCS: 99214 ==

== ENCOUNTER → 2023-10-28 12:47 | Outpatient (BNVA) | payer MEDICARE, SELFPAY | PROVIDERS: PCP Family Medicine; Visit Provider Orthopaedic Surgery | DX: M51.16 Intervertebral disc disorders with radiculopathy, lumbar region (principal); M48.062 Spinal stenosis, lumbar region with neurogenic claudication; B35.3 Tinea pedis; Z15.89 Genetic susceptibility to other disease | CPT/HCPCS: 36415; 72100; 80053; 85025; 85651; 86140; 99204 ==

== ENCOUNTER 2023-10-28 13:40 | Outpatient (CLI) | payer MEDICARE, SELFPAY ==
[2023-10-28 14:40] LABS: Basophils % 0.6 %; Eosinophils # 0.1 10^3/uL (0.0-0.8); Eosinophils % 2.2 %; Hematocrit 42.3 % (36-47); Lymphocytes # 1.4 10^3/uL (0.8-4.8); Lymphocytes % 29.1 %; Mean Corpuscular HGB Conc 33.1 g/dL (30-55); Mean Corpuscular Hemoglobin 30.6 pg (27-33); Mean Corpuscular Volume 92.4 fl (85-98); Mean Platelet Volume 10.2 fL (7.4-10.4); Monocytes # 0.5 10^3/uL (0.2-0.9); Neutrophils # 2.78 10^3/uL (1.8-7.7); Neutrophils % 56.7 %; Nucleated Red Blood Cells % 0 %; Platelet Count 238 10^3/cmm (157-399); Red Blood Count 4.58 10^6/uL (3.85-5.65); Red Cell Distribution Width 11.7 % (12.1-15.1); White Blood Count 4.91 10^3/uL (3.29-11.43)
[2023-10-28 14:47] LABS: Erythrocyte Sedimentation Rate 8 mm/hr (0-15)
[2023-10-28 14:58] LABS: Alanine Aminotransferase 18 U/L (0-33); Albumin Level 4.5 g/dL (3.5-5.2); Alkaline Phosphatase 100 U/L (35-105); Anion Gap 15.1 (5-19); Aspartate Amino Transferase 28 U/L (0-32); Blood Urea Nitrogen 13 mg/dL (8-23); Calcium 9.6 mg/dL (8.5-10.5); Carbon Dioxide 26 mmol/L (22-29); Chloride 104 mmol/L (98-107); Globulin 2.6 g/dL (1.3-4.6); Glucose 87 mg/dL (65-115); Osmolality Calculated 291 mOsm/kg (285-295); Potassium 4.1 mmol/L (3.5-5.1); Sodium 141 mmol/L (136-145); Total Bilirubin 0.3 mg/dL (0.15-1.2); Total Protein 7.1 g/dL (6.6-8.7)
== END 2023-10-28 13:41 | disposition home or self-care (01) ==
LOC: LAB 13:41
PROVIDERS: PCP Family Medicine; Visit Provider Internal Medicine
DX: M51.16 Intervertebral disc disorders with radiculopathy, lumbar region (principal); B35.3 Tinea pedis; Z15.89 Genetic susceptibility to other disease
CPT/HCPCS: 36415; 80053; 85025; 85651; 86140

== ENCOUNTER → 2023-11-03 10:02 | Outpatient (BNVA) | payer MEDICARE, SELFPAY | PROVIDERS: PCP Family Medicine; Visit Provider Internal Medicine | DX: E03.9 Hypothyroidism, unspecified (principal); M94.261 Chondromalacia, right knee; Z96.651 Presence of right artificial knee joint; Z15.89 Genetic susceptibility to other disease; M19.90 Unspecified osteoarthritis, unspecified site; M54.50 Low back pain, unspecified | CPT/HCPCS: 99214 ==

== ENCOUNTER 2023-11-17 10:01 | Outpatient (CLI) | payer MEDICARE, SELFPAY ==
[2023-11-17 10:40] LABS: Add Urine Microscopic? NO; Charge for UA Resulting for Rev
[2023-11-17 10:46] LABS: Basophils % 0.5 %; Eosinophils # 0.1 10^3/uL (0.0-0.8); Eosinophils % 3.2 %; Hematocrit 40.9 % (36-47); Lymphocytes # 1.3 10^3/uL (0.8-4.8); Lymphocytes % 29.4 %; Mean Corpuscular HGB Conc 33.5 g/dL (30-55); Mean Corpuscular Hemoglobin 30.4 pg (27-33); Mean Corpuscular Volume 90.9 fl (85-98); Mean Platelet Volume 9.9 fL (7.4-10.4); Monocytes # 0.4 10^3/uL (0.2-0.9); Monocytes % 9.6 %; Neutrophils # 2.52 10^3/uL (1.8-7.7); Neutrophils % 57.3 %; Nucleated Red Blood Cells % 0 %; Platelet Count 203 10^3/cmm (157-399); Red Cell Distribution Width 11.9 % (12.1-15.1); White Blood Count 4.39 10^3/uL (3.29-11.43)
[2023-11-17 10:56] LABS: Bilirubin Urine Neg (Negative); Blood Urine Neg (Negative); Glucose Urine UA Norm (Normal); Ketones Urine Negative (Negative); Leukocyte Esterase Urine Negative (Negative); Nitrate Urine Negative (Negative); Protein Urine Neg (Negative); Urine Appearance Clear (CLEAR); Urine Color Light yellow (Yellow); Urobilinogen Urine Norm (Negative); pH Urine 5 (5-7)
[2023-11-17 11:04] LABS: Alanine Aminotransferase 18 U/L (0-33); Albumin Level 4.4 g/dL (3.5-5.2); Alkaline Phosphatase 105 U/L (35-105); Anion Gap 10.7 (5-19); Aspartate Amino Transferase 28 U/L (0-32); Blood Urea Nitrogen 11 mg/dL (8-23); Calcium 9.9 mg/dL (8.5-10.5); Carbon Dioxide 28 mmol/L (22-29); Chloride 102 mmol/L (98-107); Globulin 2.5 g/dL (1.3-4.6); Glucose 88 mg/dL (65-115); Osmolality Calculated 283 mOsm/kg (285-295); Potassium 3.7 mmol/L (3.5-5.1); Sodium 137 mmol/L (136-145); Total Bilirubin 0.4 mg/dL (0.15-1.2); Total Protein 6.9 g/dL (6.6-8.7)
== END 2023-11-17 10:02 | disposition home or self-care (01) ==
LOC: LAB 10:02
PROVIDERS: Visit Provider Orthopaedic Surgery
DX: Z01.818 Encounter for other preprocedural examination (principal); M48.062 Spinal stenosis, lumbar region with neurogenic claudication
CPT/HCPCS: 36415; 80053; 81003; 85025

== ENCOUNTER 2023-11-29 15:51 | Observation (INO) | payer MEDICARE, SELFPAY ==
[2023-11-29] VITALS (28 sets, daily range): BP systolic 113–174; BP diastolic 61–109; PULSE 64–97; RESP 10–23; TEMP 35.9–36.7; O2SAT 92–100; BMI 29.2
--- NOTE | 2023-11-29 | XR_ITS ---
WS: [email or web address] XR lumbar spine 2-3V* [id number] REASON FOR EXAM: CINDY PICS FINDINGS: Intraoperative AP images of the lumbar spine. Surgical device sequentially overlies the L5-S1 and L4-L5 interspaces on the left. IMPRESSION: Lumbar spine localization during surgery as above.
[2023-11-29] MEDS: sodium chloride 0.9% 1,000 ML 30 ML IV (10:56)
--- NOTE | 2023-11-29 11:38 | ANES.PREANE2 ---
Pre-Anesthetic Assessment Height/Weight: Height 1.57 m Weight 72.575 kg Temp Pulse Resp BP Pulse Ox O2 Del Method 96.7 F L 86 18 139/87 96 Room Air 11/29/23 10:38 11/29/23 10:38 11/29/23 10:38 11/29/23 10:38 11/29/23 10:38 11/29/23 10:40 Preop Diagnosis: Lumbar stenosis Operation Date: 11/29/23 11:45 Proposed Procedures p Lumbar Spine Decompression Lumbar Decompression/left L4-5 and left L5-S1 minimally invasive decompression(Left) - Latrell Johnson, DO Was Beta Edward taken within 24 hours: N/A Was Clonidine taken within 24 hours: N/A Last intake: Intake Last Liquid Date 11/28/23 Last Liquid Time 22:00 Last Solid Date 11/28/23 Last Solid Time 19:00 Social No tobacco Exam alert and oriented x 3 Airway Submandibular: within normal limits Cervical ROM: within normal limits Mallampati: Class III History/ROS No significant history except as noted and No significant complaints Metabolic Hyperlipidemia Neuropsych Anxiety Anesthetic Plan ASA status: 3 Anesthesia: General Risk of > 500 ml blood loss (7ml/kg in children): No Medications/Allergies Home Medications Medication Instructions Recorded Confirmed Last Taken Type diphenhydramine HCl 25 mg capsule 25 mg PO DAILY PRN Sleep 06/05/20 11/29/23 11/28/23 History (Allergy (diphenhydramine)) ascorbate calcium (vitamin C) 500 500 mg PO DAILY 04/08/21 11/25/23 11/17/23 History mg tablet mecobalamin (vitamin B12) 1,000 1,000 mcg PO DAILY 04/08/21 11/26/23 01/13/23 History mcg chewable tablet diclofenac sodium 1 % topical gel 2 g topical QID PRN Pain 12/22/21 11/25/23 11/23/23 History cholecalciferol (vitamin D3) 25 25 mcg PO DAILY 02/10/22 11/29/23 11/28/23 History mcg (1,000 unit) capsule folic acid 400 mcg tablet 0.4 mg PO DAILY 02/10/22 11/29/23 11/28/23 History Custom Molded Orthotics #1 ea 07/19/23 11/03/23 Unknown Rx tramadol 50 mg tablet 50 mg PO Q8H PRN pain #30 tabs 11/03/23 11/29/23 11/25/23 10:00 Rx nabumetone 500 mg tablet 500 mg PO BID #60 tabs 11/24/23 11/29/23 11/28/23 Rx lorazepam 0.5 mg tablet 0.5 mg PO TID PRN anxiety/tremor 11/26/23 11/29/23 11/28/23 Rx #90 tabs Allergies Allergy/AdvReac Type Severity Reaction Status Date / Time metaxalone [From Skelaxin] Allergy Rash Verified 11/26/23 11:25 methylprednisolone Allergy itching Verified 11/26/23 11:25 [From Depo-Medrol] triamcinolone Allergy itching Verified 11/26/23 11:25 Current Medications Generic Name Dose Route Start Last Admin Trade Name Freq PRN Reason Stop Dose Admin Sodium Chloride 1,000 mls @ 30 mls/hr 11/29/23 10:30 11/29/23 10:56 Sodium Chloride 0.9% IV 11/30/23 10:29 30 mls/hr .Q24H KAREN Administration PFSH Anesthesia Medical History Lumbar pain High risk for hip fracture Osteopenia History of bleeding peptic ulcer Essential tremor Chondromalacia, right knee Osteoarthritis of shoulders, bilateral Hyperlipemia, mixed HLA B27 (HLA B27 positive) Osteoarthritis Surgical History History of lumpectomy of left breast benign History of hysteroscopy History of right knee surgery partial knee replacement History of total left knee replacement History of bilateral carpal tunnel release Family History Sister Diabetes Hyperlipidemia Hypertension Heart disease Ovarian cancer Diagnosed at age 72-73, mets to uterus Grandfather Diabetes paternal Brother Hyperlipidemia Hypertension Heart disease Parkinson disease Mother Hyperlipidemia Stroke of same Hypertension Father Heart disease Hypertension Dementia Family/Other Breast cancer maternal aunt, age at diagnosis unknown Denies family history of Colon cancer Thyroid disease Social History Smoking and tobacco/nicotine status: never used tobacco/nicotine Alcohol intake: never Substance/Drug Use: never Household members: spouse Marital status: Marital status details: 53 years Number of children: 0 Current occupational status: retired 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
--- NOTE | 2023-11-29 12:37 | W.PM.OPSUD ---
Surgery/Procedure H&P Update DATE OF PROCEDURE: November 29, 2023 DATE H&P PERFORMED: 11/26/23 H&P UPDATE INFORMATION: I have reviewed H&P completed within last 30 days, I have examined patient prior to procedure and No changes to prior documentation PREOP DIAGNOSIS: Lumbar stenosis PLANNED PROCEDURE: Operation Date: 11/29/23 11:45 Proposed Procedures p Lumbar Spine Decompression Lumbar Decompression/left L4-5 and left L5-S1 minimally invasive decompression(Left) - Latrell Johnson DO
[2023-11-29] MEDS: ceFAZolin 2,000 MG in sodium chloride 0.9% (plus) 50 ML 100 MG IV ×2 (13:11→20:43)
[2023-11-29] MEDS: lidocaine-epi 2% 20 mL INJ INJECTION (14:17)
[2023-11-29] MEDS: fentaNYL 50 mcg/mL INJ 2mL IVP ×2 (14:55→15:02)
[2023-11-29] MEDS: HYDROmorphone 1 mg/mL INJ 1 mL 0.5 MG IVP ×2 (15:16→17:49)
--- NOTE | 2023-11-29 15:18 | P.OP_ITS ---
Operative Report Date of procedure: November 29, 2023 Pre-op diagnosis: Lumbar stenosis with neurogenic claudication Post-op diagnosis: same Procedure done: 1. L4-5 laminectomy with partial facetectomy 2. L5-S1 laminectomy with partial facetectomy Surgeon: Latrell Johnson DO Estimated blood loss (mL): 10 Procedure: 1. L4-5 laminectomy with partial facetectomy 2. L5-S1 laminectomy with partial facetectomy Patient is brought to the operative suite. After undergoing anesthesia they are placed in the prone position. All areas of impingement are well padded. Patient is then prepped and draped in the normal sterile fashion. A skin incision is made over the L4/5 level. This is confirmed under c-arm guidance. A series of dilators are passed and the tubular retractor is docked on the L5/S1 lamina. A bovie is used to clear the soft tissue off the lamina and the L 5/S1 facet joint. A high speed gertrude is then used to perform the laminectomy and take down the medial aspect of the L 5/S1 facet joint. A kerrison rongeure was then used to take down the remaining lamina and smooth the edge of the laminectomy up to the point where the ligamentum flavum attaches. Attention was then brought to the medial aspect of the facet joint. The remaining medial aspect of the superior and inferior aspect of the facet joint were taken down with the kerrison from the pedicle of L5 to S1. The facet joint had significant hypertrophy. Attention was then brought to the Ligamentum Flavum. The ligament was taken down from the lamina of L5 to S1 and out medially to the remaining facet joint. The ligament was thick. The dura was then exposed. The dura was exposed trying to peel the ligament off of the dura. The curette cut into the dura because of the scarring. The dura was packed with DuraGen and DuraSeal. The L4 nerve was then traced with a curette out the L4/5 foramen and found to be adequately decompressed. The L5 nerve was traced with a curette around the L5 pedicle. The lateral recess was opened with a kerrison helping to further decompress the L5 nerve. Wound is then irrigated copiously with saline and surgiflo is used to stop any bleeding. The tubular retractor is removed and the A skin incision is made over the L5/S1 level. This is confirmed under c-arm guidance. A series of dilators are passed and the tubular retractor is docked on the L5 lamina. A bovie is used to clear the soft tissue off the lamina and the L 5/s1 facet joint. A high speed gertrude is then used to perform the laminectomy and take down the medial aspect of the L 5/S1 facet joint. A kerrison rongeure was then used to take down the remaining lamina and smooth the edge of the laminectomy up to the point where the ligamentum flavum attaches. Attention was then brought to the medial aspect of the facet joint. The remaining medial aspect of the superior and inferior aspect of the facet joint were taken down with the kerrison from the pedicle of L5 to S1. The facet joint had significant hypertrophy. Attention was then brought to the Ligamentum Flavum. The ligament was taken carlos n from the lamina of L5 to S1 and out medially to the remaining facet joint. The ligament was thick. The dura was then exposed. The dura was in good repair. The L5 nerve was then traced with a curette out the L5/S1 foramen and found to be adequately decompressed. The S1 nerve was traced with a curette around the S1 pedicle. The lateral recess was opened with a kerrison helping to further decompress the S1 nerve. Wound is then irrigated copiously with saline and surgiflo is used to stop any bleeding. The tubular retractor is removed and the wound is closed with vicryl and monocryl suture. Glue is then used to protect the wound. A sterile dressing is then placed. Patient was then placed in the supine position and transferred to the PACU in stable condition.
--- NOTE | 2023-11-29 16:21 | PC.NURSE ---
1610 - Both Dr Murrieta and Dr Johnson at pts side during pacu stay regarding pain control - per Dr Johnson - pt will be admitted overnight per Dr Johnson for pain control - updated per Dr Johnson
--- NOTE | 2023-11-29 16:30 | ANE.PACU2 ---
Inpatient post-anesthesia follow up: Airway intact: Yes Vital signs: Temperature 98.0 F Pulse Rate 81 Respiratory Rate 18 Blood Pressure 144/88 Pulse Oximetry 92 Oxygen Delivery Me thod Room Air Oxygen Flow Rate 6 Fraction of Inspir ed Oxygen Hydration adequate: Yes Nausea and vomiting: No Pain level: 4 Pain level: Requiring more opioids than anticipated, so being admitted for overnight ob Mental status: Baseline
--- OUTSIDE RECORDS SUMMARY | 2023-11-29 19:37 | XMS_ITS | Patient Health Record ---
Author Name Unknown Organization [facility] Address [address] [place] [address] Support Name Relationship Address Phone RYANNE MURGUIA Guarantor Unknown [phone] ALLERGIES Allergen (clinical drug ingredient) Drug/Non Drug Allergy documented on EMR Reaction Allergy Type Onset Date Status metaxalone metaxalone , Drug Allergy Activ e Cortisone , Drug Allergy Active REASON FOR REFERRAL No Information MEDICATIONS Medication SIG (Take, Route, Frequency, Duration) Notes Start Date End Date Status cyclobenzaprine cyclobenzaprine 05/10/2012 900 Active Citalopram Citalopram 05/10/2012 Active Omeprazole Omeprazole 05/10/2012 Active Simvastatin Simvastatin 05/10/2012 Acti ve SOCIAL HISTORY Sex Assigned At : Social History Observation Description Sex Assigned At Unknown PLAN OF TREATMENT No Information
[2023-11-29] MEDS: ondansetron 2 mg/ML SDV 2 mL 4 MG IVP (19:45)
[2023-11-29] MEDS: HYDROcodone-acetaminophen 5-325 mg Tablet PO (20:42)
[2023-11-29] MEDS: docusate sodium 100 mg Capsule PO (20:42)
[2023-11-29] MEDS: lactated ringers 1,000 ML 90 ML IV (20:43)
[2023-11-30] VITALS: BP 140/80; PULSE 74; RESP 18; TEMP 36.4; O2SAT 96
[2023-11-30] MEDS: ketorolac 30 mg/mL INJ IVP ×2 (00:20→09:40)
[2023-11-30] MEDS: HYDROcodone-acetaminophen 5-325 mg Tablet PO ×3 (00:52→09:44)
[2023-11-30 02:53] VITALS: PULSE 67; RESP 17; O2SAT 93
[2023-11-30] MEDS: ceFAZolin 2,000 MG in sodium chloride 0.9% (plus) 50 ML 100 MG IV (03:32)
[2023-11-30 04:50] VITALS: BP 107/63; PULSE 58; RESP 16; TEMP 37.2; O2SAT 95
[2023-11-30 07:04] VITALS: BP 114/60; PULSE 70; RESP 16; TEMP 36.8; O2SAT 96
[2023-11-30 07:32] VITALS: PULSE 61; RESP 16; O2SAT 98
--- NOTE | 2023-11-30 08:11 | P.DS_ITS ---
Discharge Providers Date of Admission: 11/29/23 15:51 Date of Discharge: November 30, 2023 Attending Provider at Admission: Latrell Johnson DO Attending Provider at Discharge: Latrell Johnson DO Primary Care Provider: Zayra Matthews MD Reason for Visit Reason for Visit: M48.062 Physical Exam Narrative: Patient is doing well is ambulating has some numbness on her left leg otherwise feeling good. Discharge Data Studies Completed and Pending Completed Studies During Hospitalization Category Date Time Status XR lumbar spine 2-3V* [id number] Routine Exams 11/29/23 Completed Vitals Last Vital Signs Temp 98.2 F 11/30/23 07:04 Pulse 61 11/30/23 07:32 Resp 16 11/30/23 07:32 BP 114/60 11/30/23 07:04 Pulse Ox 98 11/30/23 07:32 O2 Del Method Room Air 11/30/23 07:32 O2 Flow Rate 6 11/29/23 14:48 Discharge Plan Discharge Patient Disposition: Home Condition: Stable Prescriptions: New hydrocodone-acetaminophen 5-325 mg tablet 1 - 2 tab PO .Q4-6H Qty: 40 0RF Continued diphenhydramine HCl [Allergy (diphenhydramine)] 25 mg capsule 25 mg PO DAILY PRN (Reason: Sleep) ascorbate calcium (vitamin C) 500 mg tablet 500 mg PO DAILY mecobalamin (vitamin B12) 1,000 mcg tablet,chewable 1,000 mcg PO DAILY cholecalciferol (vitamin D3) 25 mcg (1,000 unit) capsule 25 mcg PO DAILY folic acid 400 mcg tablet 0.4 mg PO DAILY diclofenac sodium 1 % gel 2 g topical QID PRN (Reason: Pain) Rx Instructions: apply to single elbow, wrist or hand; for hand includes palm/fingers/back of hand tramadol 50 mg tablet 50 mg PO Q8H PRN (Reason: pain) Qty: 30 0RF lorazepam 0.5 mg tablet 0.5 mg PO TID PRN (Reason: anxiety/tremor) Qty: 90 5RF (DME) Custom Molded Orthotics See Rx Instructions .Route .MEDSUPPLY Qty: 1 0RF Rx Instructions: As directed nabumetone 500 mg tablet 500 mg PO BID Qty: 60 1RF Discharge Orders: Discharge Order (Routine); Ordered 11/30/23 Ordered By: Latrell Johnson Referrals: Latrell Johnson, [Physician] - 12/14/23 8:15 am (post op follow up ) Discharge Diet: Advance as tolerated Discharge Activity: Limit activity as instructed Patient Instructions: Hydrocodone/Acetaminophen (By mouth), Corpectomy (DC), Post Anesthesia Care Activity Restrictions/Additional Instructions: Thank you for [facility] for your care! The following is a list of instructions, from your provider, to follow upon your discharge to ensure you have the optimal recovery from your recent injury orsurgery. Follow-up care is a conner part of your treatment and safety. Be sure to make and go to all appointments, and call your doctor if you are having problems. If you do not already have a follow-up appointment made, call Dr. Johnson office in the next 1-3 days to make follow up appointment for 2 weeks at [phone]. It is also a good idea to know your test results and keep a list of the medicines you take. Medications will be prescribed for you at your provider's discretion. These medications are to be used as instructed; if they are taken more often that prescribed they will not be refilled early and in most cases will not be refilled at all. > When a refill is needed,you should contact radha boyd 2-3 business days before your prescription runs out. Medications will NOT be refilled by live ammunition inspector providers after hours! > Many pain medications contain Tylenol (Acetaminophen). Do not consume more than 4,000 mg of Tylenol per day in total with any combination ofmedications. > Pain medications can cause constipation. Please use an over the counter stool softener as directed, while taking pain medications. Consulty our local pharmacist with questions or recommendations on stool softeners. If constipation persists, contact our office or your primary care provider. > While under our care,you are not to receive pain medications or other controlled substances from any other provider unless our office is notified and approves. Any attempts to do so will result in refusal to prescribe any further pain medications and possible dismissal from our practice. ? Your wound and/or dressing should remain clean and dry for 2 days after surgery. On postoperative day 2 (48 hours after your surgery) the dressing (if present) should be removed and it is okay to shower and get the incision wet. Pad dry afterwards. No further dressing should be required from that point on. Do not put any creams or ointments on theincision > It is normal for there to be a small amount of discharge (bloody or blood tinged) present from a surgical wound for the first 1-3days. > The wound should be examined twice a day for signs of infection. Mild redness or bruising is to be expected but indications that an infection maybe starting would include; An increase in redness, swelling, or discharge, a foul o bret present around the incision, and/or a fever greater than 101 ?F ? Showering is permitted, however we ask that you do not take a bath, sit in a whirlpool / Jacuzzi, or go swimming for 1 month. For only the first 2 days after surgery, lt wilt be necessary for you to cover your wound/dressing with plastic and tape to keep it dry. ? Walking is essential for the healing process after surgery. We would like you to slowly advance your walking. This should be done on relatively flat clear ground (inside or out) or can be done on a treadmill. Remember this goal does not have to happen all at once, slowly increase your distance and duration. This can be broken into more more than one walk per day as tolerated. Patients who walk as directed after surgery rarely require Physica l Therapy. In the unlikely event this issue arises your provider will direct hospital staff to make the appropriate arrangements. ? No lifting over 5 pounds {a gallon of milk) or bending/twisting until further notice. Each of these activities places an unnecessary amount of stress onto the body and can impede the delicate healing process. > Instead of bending at the waist, keep your back straight and bend at the knees. > Instead of twisting your torso, keep your back straight and turn your entire body with your feet. ? You may sleep in any position which makes you comfortable. Many patients find comfort sleeping in a reclining chair. It is not abnormal to have difficulty sleeping for the first several weeks following your surgery. We recommend trying Benadry! or Tylenol PM as directed to help with your sleeping difficulties. Both medications are over the counter and available withoutprescription. ? NO SMOKING!!! Smoking dramatically increases the probability of developing postoperative wound infections. ? Common complaints after lumbar and/or thoracic spine surgery include, but are not limited to: numbness and/or tingling in the legs, pain around the incision and surrounding tissues, muscle spasms, or stiffness of the middle to low back. Contact our office if these symptoms persist or if an acute change occurs. ? No driving for the first 3-5days, and not while taking narcotics until seen at your follow-up appointment and cleared. There are no restrictions for riding on short trips, however if you take a longer trip, arrangements should be made to make regular stops to get out of the vehicle and stretch . ? Swelling is an unfortunate event that will take place with any surgery and is the primary source of your postoperative discomfort. While walking and regular approved activities helps control inflammation, there are additional steps you can take to minimizeswelling. > Place ice over the surgical site and surrounding tissue for twenty minutes, followed by applying a low/medium heat (heating pad) for an additional twenty minutes every 1-2 hours as needed for painrelief. > You may use of over the counter anti-inflammatory medications (Ibuprofen, Motrin, Aleve, Advil, etc) as directed on the package label. These types of medicines wm significantly reduce the amount of discomfort you experie nce after surgery from swelling. It should be noted that if you have and allergy to any of these medications, or a history of ulcers or kidney disease you should consult you primary care provider prior to starting these medications. Discharge Attestations Time Spent in Discharge Care*: less than 30 min Quality Metrics Clinical Quality Measures [ No reported AMI, CVA or VTE this stay] Coding Level of Care Code Acute Code for Arturg Richard
[2023-11-30] MEDS: ascorbic acid 500 mg Tablet PO (09:39)
[2023-11-30] MEDS: docusate sodium 100 mg Capsule PO (09:39)
[2023-11-30] MEDS: cholecalciferol (vitamin D3) 1,000 unit Tablet 1000 UNIT PO (09:39)
--- NOTE | 2023-11-30 09:39 | PC.CHAP ---
Pastoral Care Encounter/Spiritual Assessment Type of Contact [] Declined platinumsmith visit [] Patient/Family/Request visit [] Outpatient visit [] Follow-up visit [] Physician referral [] Code/Alert [x] Routine visit [] Staff referral [] Actively dying [] Patient sleeping [x] Family support [] [] Out of room [] Palliative care [] [] Receiving care in room [] Pre-surgical visit [] Trauma [] Long length of stay [] ICU visit [] Other: Relational/Emotional Strength [x] Patient feels connected with others/family/visitors/staff [] Distress [] Loneliness/isolation [] Abandonment Spirituality of Patient [x] Person of Paty [] Attends Protestant of their Paty [x] Believes in Prayer [] Reads Bible or Synagogue materials [] There are Spiritual issues to be addressed Film Replacement Orderer Interventions [x] Prayer [x] Active listening [] Non-anxious presence [x] Spiritual/emotional support [] Crisis/trauma care [] Spiritual counseling [] Bereavement support [] Provided bereavement packet [] Provided Bible/devotional materials [] Provided toy/stuffed animal, coloring book to patient or family member [] Provided Communion [] Anointing/[place] [] Salvation [x] Completed spiritual assessment [] Other: Impact on Illness or Injury [] Angry [] Fearful [] Anxious [] Often cries [] Exhaustion [] Unable to work [] Unable to attend evangelical [] Unable to walk/stand [] Unable to read [] Unable to drive [] Unable to eat/drink [] Unable to sleep [] Unable to be with family [] Patient intubated [] Other: Summary Time spent with patient 10 min
[2023-11-30] MEDS: folic acid 1 mg Tablet 0.5 MG PO (09:40)
--- NOTE | 2023-11-30 11:26 | PC.NURSE ---
Discharge Note Patient discharged to home via private vehicle accompanied by . Discharge instructions reviewed with patient and/or litigation claim representative. Mobile pharmacy medications and/or prescriptions provided. Wheeled patient down stairs to the pharmacy to sweet pickle maker narcotic and then wheeled to the car. Belongings/home medications returned.
[2023-11-30 11:27] VITALS: PULSE 61; RESP 16; O2SAT 98
== END 2023-11-30 11:28 | disposition home or self-care (01) ==
LOC: MEDSURG 19:31
PROVIDERS: Admitting Provider Orthopaedic Surgery; PCP Family Medicine; Visit Provider Orthopaedic Surgery
PROC: (CPT 63005; principal; 2023-11-29 11:25)
DX: M48.062 Spinal stenosis, lumbar region with neurogenic claudication (principal); E78.5 Hyperlipidemia, unspecified; F41.9 Anxiety disorder, unspecified; M19.012 Primary osteoarthritis, left shoulder; M19.011 Primary osteoarthritis, right shoulder; E78.2 Mixed hyperlipidemia
CPT/HCPCS: 63047; 63048; 72100; 76000; 97161; 97530; G0378; J0690; J1170; J1885; J2405; J2704; J3010; J3490; J7030; J7120

== ENCOUNTER → 2023-12-14 08:08 | Outpatient (BNVA) | payer MEDICARE, SELFPAY | PROVIDERS: PCP Family Medicine; Visit Provider Orthopaedic Surgery | DX: M54.50 Low back pain, unspecified (principal); Z47.89 Encounter for other orthopedic aftercare | CPT/HCPCS: 72100; 99024 ==

== ENCOUNTER → 2024-01-11 08:43 | Outpatient (BNVA) | payer MEDICARE, SELFPAY | PROVIDERS: PCP Family Medicine; Visit Provider Orthopaedic Surgery | DX: Z47.89 Encounter for other orthopedic aftercare | CPT/HCPCS: 99024 ==

== ENCOUNTER → 2024-02-01 08:00 | Outpatient (BNVA) | payer MEDICARE, SELFPAY | PROVIDERS: PCP Family Medicine; Visit Provider Orthopaedic Surgery | DX: Z98.890 Other specified postprocedural states (principal) | CPT/HCPCS: 72100; 99024 ==

== ENCOUNTER 2024-02-09 09:09 | Outpatient (RCR) | payer MEDICARE, SELFPAY | END 2024-02-20 23:59 | disposition home or self-care (01) | LOC: SPT 09:09 | PROVIDERS: PCP Family Medicine; Visit Provider Orthopaedic Surgery | DX: Z98.890 Other specified postprocedural states (principal) | CPT/HCPCS: 97110; 97162 ==

== ENCOUNTER → 2024-02-15 09:04 | Outpatient (BNVA) | payer MEDICARE, SELFPAY | PROVIDERS: PCP Family Medicine; Visit Provider Student in an Organized Health Care Education/Training Program | DX: M94.261 Chondromalacia, right knee (principal); Z96.651 Presence of right artificial knee joint; M17.11 Unilateral primary osteoarthritis, right knee | CPT/HCPCS: 99213 ==

== ENCOUNTER 2024-02-16 07:01 | Outpatient (CLI) | payer MEDICARE, SELFPAY ==
[2024-02-16 07:25] LABS: Basophils % 0.5 %; Eosinophils # 0.2 10^3/uL (0.0-0.8); Eosinophils % 4.1 %; Hematocrit 41.7 % (36-47); Lymphocytes # 1.1 10^3/uL (0.8-4.8); Lymphocytes % 27.6 %; Mean Corpuscular HGB Conc 33.1 g/dL (30-55); Mean Corpuscular Hemoglobin 30.4 pg (27-33); Mean Corpuscular Volume 91.9 fl (85-98); Mean Platelet Volume 9.4 fL (7.4-10.4); Monocytes # 0.4 10^3/uL (0.2-0.9); Neutrophils % 56.3 %; Nucleated Red Blood Cells % 0 %; Platelet Count 237 10^3/cmm (157-399); Red Blood Count 4.54 10^6/uL (3.85-5.65); Red Cell Distribution Width 12.9 % (12.1-15.1); White Blood Count 3.91 10^3/uL (3.29-11.43)
[2024-02-16 07:28] LABS: Erythrocyte Sedimentation Rate 4 mm/hr (0-15)
== END 2024-02-16 07:02 | disposition home or self-care (01) ==
PROVIDERS: PCP Family Medicine; Visit Provider Student in an Organized Health Care Education/Training Program
DX: M94.261 Chondromalacia, right knee (principal)
CPT/HCPCS: 36415; 85025; 85651; 86140

== ENCOUNTER 2024-02-18 08:26 | Outpatient (CLI) | payer MEDICARE, SELFPAY ==
--- NOTE | 2024-02-18 08:45 | NM_ITS ---
WS: [id number] NUCLEAR MEDICINE WHOLE BODY BONE SCAN HISTORY: Chondromalacia COMPARISON: No prior studies. No recent shoulder radiographs. Lumbar spine radiograph 12/14/2023. TECHNIQUE: The patient was injected with 24.3 mCi of Technetium 99m HDP and serial whole-body scintig jenny have been performed with anterior and posterior images. Severe bilateral increased uptake within the humeral heads. The overall configuration of the humeral heads appears abnormal. Status post LEFT knee arthroplasty. Hemiarthroplasty RIGHT knee. There is additional increased uptake in the lateral compartment of the RIGHT knee which has not been replaced. Photopenic defect in the L EFT knee from the prior arthroplasty. Very slight increased uptake involving the superior RIGHT later al SI joint. On the radiograph from 02/01/2024 there is narrowing of the SI joint. There is additional intermediate increased uptake within L2 and L3 vertebral bodies. Osteoporotic and osteosclerotic deg enerative changes and disc disease was noted on the recent radiographs. No rib lesions. Normal soft t issue uptake and renal uptake. IMPRESSION: 1. Intense uptake in the humeral heads bilaterally. 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 Radiographs can be performed for further evaluation. 2. Severe osteoarthritis in the lateral compartment of the RIGHT knee. 3. Medial RIGHT knee hemiarthroplasty. 4. Prior arthroplasty LEFT knee. 5. Intermediate uptake within L2 and L3 vertebral bodies. Corresponds to advanced degenerative disc disease and sclerosis on the recent lumbar radiographs. Tiny microfractures are suspected. 6. Mild increased uptake along the iliac side of the RIGHT SI joint. Probable sacroiliitis.
== END 2024-02-18 08:27 | disposition home or self-care (01) ==
LOC: RAD 08:27
PROVIDERS: PCP Family Medicine; Visit Provider Student in an Organized Health Care Education/Training Program
DX: M94.20 Chondromalacia, unspecified site (principal)
CPT/HCPCS: 78306; A9561

== ENCOUNTER → 2024-02-22 08:43 | Outpatient (BNVA) | payer MEDICARE, SELFPAY | PROVIDERS: PCP Family Medicine; Visit Provider Orthopaedic Surgery | DX: M48.062 Spinal stenosis, lumbar region with neurogenic claudication (principal); Z98.890 Other specified postprocedural states | CPT/HCPCS: 99024 ==

== ENCOUNTER 2024-03-16 09:58 | Outpatient (RCR) | payer MEDICARE, SELFPAY | END 2024-03-21 23:59 | disposition home or self-care (01) | LOC: SPT 09:58 | PROVIDERS: PCP Family Medicine; Visit Provider Orthopaedic Surgery | DX: Z47.89 Encounter for other orthopedic aftercare (principal) | CPT/HCPCS: 97110 ==

== ENCOUNTER 2024-03-23 10:00 | Outpatient (RCR) | payer MEDICARE, SELFPAY | END 2024-03-30 23:59 | disposition home or self-care (01) | LOC: SPT 10:00 | PROVIDERS: PCP Family Medicine; Visit Provider Orthopaedic Surgery | DX: M54.50 Low back pain, unspecified (principal) | CPT/HCPCS: 97110 ==

== ENCOUNTER → 2024-05-01 14:32 | Outpatient (BNVA) | payer MEDICARE, SELFPAY | PROVIDERS: PCP Family Medicine; Visit Provider Nurse Practitioner Family | DX: L57.0 Actinic keratosis (principal); L81.4 Other melanin hyperpigmentation; L57.8 Other skin changes due to chronic exposure to nonionizing radiation | CPT/HCPCS: 17000; 99213 ==

== ENCOUNTER → 2024-05-23 08:50 | Outpatient (BNVA) | payer MEDICARE, SELFPAY | PROVIDERS: PCP Family Medicine; Visit Provider Orthopaedic Surgery | DX: Z98.890 Other specified postprocedural states (principal) | CPT/HCPCS: 99213 ==

== ENCOUNTER 2024-05-31 10:12 | Outpatient (CLI) | payer MEDICARE, SELFPAY ==
[2024-05-31 10:53] LABS: Basophils % 0.4 %; Eosinophils # 0.2 10^3/uL (0.0-0.8); Eosinophils % 3.1 %; Hematocrit 42.2 % (36-47); Lymphocytes # 1.5 10^3/uL (0.8-4.8); Lymphocytes % 30.9 %; Mean Corpuscular HGB Conc 32.9 g/dL (30-55); Mean Corpuscular Hemoglobin 30.5 pg (27-33); Mean Corpuscular Volume 92.5 fl (85-98); Mean Platelet Volume 9.5 fL (7.4-10.4); Monocytes # 0.4 10^3/uL (0.2-0.9); Monocytes % 8.6 %; Neutrophils # 2.76 10^3/uL (1.8-7.7); Neutrophils % 56.6 %; Nucleated Red Blood Cells % 0 %; Platelet Count 236 10^3/cmm (157-399); Red Blood Count 4.56 10^6/uL (3.85-5.65); Red Cell Distribution Width 12.4 % (12.1-15.1); White Blood Count 4.88 10^3/uL (3.29-11.43)
[2024-05-31 11:13] LABS: Erythrocyte Sedimentation Rate 8 mm/hr (0-15)
[2024-05-31 11:22] LABS: Alanine Aminotransferase 18 U/L (0-33); Albumin Level 4.3 g/dL (3.5-5.2); Alkaline Phosphatase 122 U/L (35-105); Aspartate Amino Transferase 31 U/L (0-32); Globulin 2.7 g/dL (1.3-4.6); Total Bilirubin 0.3 mg/dL (0.15-1.2)
== END 2024-05-31 10:13 | disposition home or self-care (01) ==
LOC: LAB 10:16
PROVIDERS: PCP Family Medicine; Visit Provider Internal Medicine Rheumatology
DX: M85.80 Other specified disorders of bone density and structure, unspecified site (principal); Z15.89 Genetic susceptibility to other disease; Z79.899 Other long term (current) drug therapy
CPT/HCPCS: 36415; 80076; 82565; 85025; 85651; 86140

== ENCOUNTER → 2024-06-06 13:58 | Outpatient (BNVA) | payer MEDICARE, SELFPAY | PROVIDERS: PCP Family Medicine; Visit Provider Internal Medicine Rheumatology | DX: M54.9 Dorsalgia, unspecified (principal); Z15.89 Genetic susceptibility to other disease; M15.4 Erosive (osteo)arthritis; M54.50 Low back pain, unspecified; M94.261 Chondromalacia, right knee; Z96.651 Presence of right artificial knee joint | CPT/HCPCS: 72202; 99214 ==

== ENCOUNTER → 2024-06-09 09:29 | Outpatient (BNVA) | payer MEDICARE, SELFPAY | PROVIDERS: PCP Family Medicine; Visit Provider Podiatrist Foot & Ankle Surgery | DX: M77.9 Enthesopathy, unspecified; M19.071 Primary osteoarthritis, right ankle and foot | CPT/HCPCS: 73630; 99213 ==

== ENCOUNTER 2024-06-14 14:46 | Outpatient (CLI) | payer MEDICARE, SELFPAY ==
--- NOTE | 2024-06-14 14:48 | MM_ITS ---
WS: [id number] BILATERAL 3D TOMOSYNTHESIS DIGITAL SCREENING MAMMOGRAPHY WITH CAD CLINICAL INFORMATION: SCREENING HISTORY: Screening mammogram. No current complaints. COMPARISON: 2022 TECHNIQUE: Bilateral CC and MLO views. FINDINGS: Scattered fibroglandular densities bilaterally. No suspicious focal mass, asymmetry, calcifications, or architectural distortion. No evidence of malignancy. LEFT breast biopsy clip. Vascular calcificati ons. MM/[place] [id number] IMPRESSION: BI-RADS: 2-Benign FOLLOW UP: 1 Year Follow-up Recommend return to annual screening mammography.
== END 2024-06-14 14:47 | disposition home or self-care (01) ==
LOC: RAD 14:47
PROVIDERS: PCP Family Medicine; Visit Provider Family Medicine
DX: Z12.31 Encounter for screening mammogram for malignant neoplasm of breast (principal); R92.323 Mammographic fibroglandular density, bilateral breasts; R92.1 Mammographic calcification found on diagnostic imaging of breast
CPT/HCPCS: 77063; 77067

== ENCOUNTER → 2024-07-11 13:13 | Outpatient (BNVA) | payer MEDICARE, SELFPAY | PROVIDERS: PCP Family Medicine; Visit Provider Nurse Practitioner Family | DX: B07.8 Other viral warts (principal); L81.4 Other melanin hyperpigmentation; L82.1 Other seborrheic keratosis; L57.8 Other skin changes due to chronic exposure to nonionizing radiation | CPT/HCPCS: 17110; 99213 ==

== ENCOUNTER → 2024-08-30 13:21 | Outpatient (BNVA) | payer MEDICARE, SELFPAY | PROVIDERS: PCP Family Medicine; Visit Provider Podiatrist Foot & Ankle Surgery | DX: M77.9 Enthesopathy, unspecified; M19.071 Primary osteoarthritis, right ankle and foot | CPT/HCPCS: 99213 ==

== ENCOUNTER → 2024-10-17 13:13 | Outpatient (BNVA) | payer MEDICARE, SELFPAY | PROVIDERS: PCP Family Medicine; Visit Provider Internal Medicine Rheumatology | DX: Z15.89 Genetic susceptibility to other disease (principal); M15.0 Primary generalized (osteo)arthritis; Z96.651 Presence of right artificial knee joint; M51.16 Intervertebral disc disorders with radiculopathy, lumbar region | CPT/HCPCS: 99214 ==

== ENCOUNTER → 2024-10-31 15:14 | Outpatient (BNVA) | payer MEDICARE, SELFPAY | PROVIDERS: PCP Family Medicine; Visit Provider Family Medicine | DX: E78.2 Mixed hyperlipidemia (principal) | CPT/HCPCS: 80061; 82607 ==

== ENCOUNTER → 2024-12-14 13:05 | Outpatient (BNVA) | payer MEDICARE, SELFPAY | PROVIDERS: PCP Family Medicine; Visit Provider Nurse Practitioner Family | DX: L82.1 Other seborrheic keratosis (principal); L81.4 Other melanin hyperpigmentation; D48.5 Neoplasm of uncertain behavior of skin; L57.0 Actinic keratosis | CPT/HCPCS: 11102; 17000; 99213 ==

== ENCOUNTER → 2024-12-27 08:38 | Outpatient (BNVA) | payer MEDICARE, SELFPAY | PROVIDERS: PCP Family Medicine; Visit Provider Physician Assistant | DX: M19.011 Primary osteoarthritis, right shoulder (principal); M19.012 Primary osteoarthritis, left shoulder | CPT/HCPCS: 20610; 73030; 99213; J3301 ==

== ENCOUNTER → 2024-12-28 13:11 | Outpatient (BNVA) | payer MEDICARE, SELFPAY | PROVIDERS: PCP Family Medicine; Visit Provider Orthopaedic Surgery | DX: M48.062 Spinal stenosis, lumbar region with neurogenic claudication (principal); M51.16 Intervertebral disc disorders with radiculopathy, lumbar region; M54.50 Low back pain, unspecified | CPT/HCPCS: 72100; 99213 ==

== ENCOUNTER → 2025-01-04 07:49 | Outpatient (BNVA) | payer MEDICARE, SELFPAY | PROVIDERS: PCP Family Medicine; Visit Provider Dermatology | DX: C44.311 Basal cell carcinoma of skin of nose (principal) | CPT/HCPCS: 14060; 17311 ==

== ENCOUNTER 2025-01-09 08:59 | Outpatient (CLI) | payer MEDICARE, SELFPAY ==
--- NOTE | 2025-01-09 09:23 | XR_ITS ---
WS: [id number] Exam: XR knee LT 3V* [id number] Date/Time of Exam: 01/09/2025 9:52 AM Reason For Exam: pain in knee after fall, s/p tka Comparison 07/07/2023. LEFT total knee arthroplasty noted in satisfactory position. No sign of loosening. No joint effusion. Normal soft tissues. XR/XR knee LT 3V* [id number] IMPRESSION: 1. Intact LEFT total knee replacement. No change or complication.
== END 2025-01-09 09:00 | disposition home or self-care (01) ==
PROVIDERS: PCP Family Medicine; Visit Provider Family Medicine
DX: M25.562 Pain in left knee (principal); W19.XXXA Unspecified fall, initial encounter; Z98.890 Other specified postprocedural states
CPT/HCPCS: 73562

== ENCOUNTER 2025-01-17 11:42 | Outpatient (CLI) | payer MEDICARE, SELFPAY | END 2025-01-17 11:43 | disposition home or self-care (01) | LOC: SPT 11:43 | PROVIDERS: PCP Family Medicine; Visit Provider Student in an Organized Health Care Education/Training Program | DX: Z47.89 Encounter for other orthopedic aftercare (principal); Z96.652 Presence of left artificial knee joint | CPT/HCPCS: L1812 ==

== ENCOUNTER → 2025-01-23 13:27 | Outpatient (BNVA) | payer MEDICARE, SELFPAY | PROVIDERS: PCP Family Medicine; Visit Provider Internal Medicine Rheumatology | DX: Z15.89 Genetic susceptibility to other disease (principal); M15.0 Primary generalized (osteo)arthritis; Z96.651 Presence of right artificial knee joint; M51.16 Intervertebral disc disorders with radiculopathy, lumbar region | CPT/HCPCS: 99214 ==

== ENCOUNTER 2025-02-20 08:00 | Outpatient (CLI) | payer MEDICARE, SELFPAY ==
[2025-02-20 08:22] LABS: Basophils % 0.5 %; Eosinophils # 0.1 10^3/uL (0.0-0.8); Eosinophils % 3.5 %; Hematocrit 41.8 % (36-47); Lymphocytes # 1.2 10^3/uL (0.8-4.8); Lymphocytes % 32.7 %; Mean Corpuscular HGB Conc 32.3 g/dL (30-55); Mean Corpuscular Volume 92.9 fl (85-98); Mean Platelet Volume 9.5 fL (7.4-10.4); Monocytes # 0.3 10^3/uL (0.2-0.9); Monocytes % 8.8 %; Neutrophils # 2.01 10^3/uL (1.8-7.7); Nucleated Red Blood Cells % 0 %; Platelet Count 209 10^3/cmm (157-399); Red Cell Distribution Width 12.8 % (12.1-15.1); White Blood Count 3.73 10^3/uL (3.29-11.43)
[2025-02-20 08:32] LABS: Erythrocyte Sedimentation Rate 8 mm/hr (0-15)
[2025-02-20 08:42] LABS: Alanine Aminotransferase 12 U/L (0-33); Albumin Level 4.3 g/dL (3.5-5.2); Alkaline Phosphatase 105 U/L (35-105); Aspartate Amino Transferase 22 U/L (0-32); Globulin 2.2 g/dL (1.3-4.6); Total Bilirubin 0.3 mg/dL (0.15-1.2); Total Protein 6.5 g/dL (6.6-8.7)
== END 2025-02-20 08:01 | disposition home or self-care (01) ==
LOC: LAB 08:01
PROVIDERS: PCP Family Medicine; Visit Provider Internal Medicine Rheumatology
DX: Z79.899 Other long term (current) drug therapy (principal)
CPT/HCPCS: 36415; 80076; 82565; 85025; 85651; 86140

== ENCOUNTER → 2025-02-21 07:59 | Outpatient (BNVA) | payer MEDICARE, SELFPAY | PROVIDERS: PCP Family Medicine; Visit Provider Student in an Organized Health Care Education/Training Program | DX: M19.011 Primary osteoarthritis, right shoulder (principal); M19.012 Primary osteoarthritis, left shoulder | CPT/HCPCS: 99214 ==

== ENCOUNTER → 2025-04-17 13:55 | Outpatient (BNVA) | payer MEDICARE, SELFPAY | PROVIDERS: PCP Family Medicine; Visit Provider Student in an Organized Health Care Education/Training Program | DX: S86.912A Strain of unspecified muscle(s) and tendon(s) at lower leg level, left leg, initial encounter (principal); M25.562 Pain in left knee; M17.11 Unilateral primary osteoarthritis, right knee; Z96.651 Presence of right artificial knee joint; X58.XXXA Exposure to other specified factors, initial encounter | CPT/HCPCS: 73560; 73565; 99213 ==

== ENCOUNTER 2025-05-01 07:25 | Outpatient (RCR) | payer MEDICARE, SELFPAY | END 2025-05-21 23:59 | disposition home or self-care (01) | LOC: SPT 07:25 | PROVIDERS: PCP Family Medicine; Visit Provider Student in an Organized Health Care Education/Training Program | DX: M25.562 Pain in left knee (principal) | CPT/HCPCS: 97110; 97161 ==

== ENCOUNTER 2025-05-15 11:40 | Outpatient (CLI) | payer MEDICARE, SELFPAY ==
[2025-05-15 12:20] LABS: Basophils % 0.4 %; Eosinophils # 0.1 10^3/uL (0.0-0.8); Eosinophils % 2.8 %; Hematocrit 40.3 % (36-47); Lymphocytes # 1.6 10^3/uL (0.8-4.8); Mean Corpuscular HGB Conc 32.3 g/dL (30-55); Mean Corpuscular Volume 93.1 fl (85-98); Mean Platelet Volume 9.2 fL (7.4-10.4); Monocytes # 0.5 10^3/uL (0.2-0.9); Neutrophils # 2.42 10^3/uL (1.8-7.7); Neutrophils % 52.4 %; Nucleated Red Blood Cells % 0 %; Platelet Count 204 10^3/cmm (157-399); Red Blood Count 4.33 10^6/uL (3.85-5.65); Red Cell Distribution Width 12.6 % (12.1-15.1); White Blood Count 4.62 10^3/uL (3.29-11.43)
[2025-05-15 12:31] LABS: Erythrocyte Sedimentation Rate 4 mm/hr (0-15)
[2025-05-15 12:40] LABS: Alanine Aminotransferase 16 U/L (0-33); Albumin Level 4.2 g/dL (3.5-5.2); Alkaline Phosphatase 116 U/L (35-105); Aspartate Amino Transferase 24 U/L (0-32); C Reactive Protein 3.2 mg/L (0.0-4.9); Globulin 2.5 g/dL (1.3-4.6); Total Bilirubin 0.2 mg/dL (0.15-1.2); Total Protein 6.7 g/dL (6.6-8.7)
== END 2025-05-15 11:41 | disposition home or self-care (01) ==
PROVIDERS: PCP Family Medicine; Visit Provider Internal Medicine Rheumatology
DX: Z79.899 Other long term (current) drug therapy (principal)
CPT/HCPCS: 36415; 80076; 82565; 85025; 85651; 86140

== ENCOUNTER → 2025-05-17 09:51 | Outpatient (BNVA) | payer MEDICARE, SELFPAY | PROVIDERS: PCP Family Medicine; Visit Provider Internal Medicine Rheumatology | DX: Z15.89 Genetic susceptibility to other disease (principal); M15.0 Primary generalized (osteo)arthritis; Z96.651 Presence of right artificial knee joint; M51.16 Intervertebral disc disorders with radiculopathy, lumbar region; Z79.899 Other long term (current) drug therapy | CPT/HCPCS: 99214 ==

== ENCOUNTER 2025-05-22 05:00 | Outpatient (RCR) | payer MEDICARE, SELFPAY | END 2025-06-21 23:59 | disposition home or self-care (01) | LOC: SPT 05:00 | PROVIDERS: PCP Family Medicine; Visit Provider Student in an Organized Health Care Education/Training Program | DX: M25.562 Pain in left knee (principal) | CPT/HCPCS: 97110 ==

== ENCOUNTER → 2025-06-21 13:46 | Outpatient (BNVA) | payer MEDICARE, SELFPAY | PROVIDERS: PCP Family Medicine; Visit Provider Nurse Practitioner Family | DX: L30.4 Erythema intertrigo (principal); L82.1 Other seborrheic keratosis; L81.4 Other melanin hyperpigmentation; L57.8 Other skin changes due to chronic exposure to nonionizing radiation; Z08 Encounter for follow-up examination after completed treatment for malignant neoplasm; Z85.828 Personal history of other malignant neoplasm of skin | CPT/HCPCS: 99214 ==

== ENCOUNTER 2025-06-29 09:16 | Outpatient (CLI) | payer MEDICARE, SELFPAY ==
--- NOTE | 2025-06-29 | MM_ITS ---
WS: [id number] BILATERAL SCREENING DIGITAL TOMOSYNTHESIS MAMMOGRAM WITH CAD HISTORY: ANNUAL SCREENING COMPARISON: 06/14/2024, 06/07/2023 and 05/26/2022 Bilateral CC and MLO views with tomosynthesis and synthetic mammography submitted. Computer aided detection analyzed. Breast composition: The breasts are heterogeneously dense, which may obscure small masses. No suspicious masses, microcalcifications or architectural distortion. Biopsy clip 12:00 LEFT breast. Benign arterial calcifications. No mass. MM/MM scr BI tomosynthesis [id number] IMPRESSION: BI-RADS: 2 - Benign FOLLOW UP: 1 Year Follow-up
== END 2025-06-29 09:17 | disposition home or self-care (01) ==
LOC: RAD 09:17
PROVIDERS: PCP Family Medicine; Visit Provider Family Medicine
DX: Z12.31 Encounter for screening mammogram for malignant neoplasm of breast (principal)
CPT/HCPCS: 77063; 77067

== ENCOUNTER → 2025-08-01 14:58 | Outpatient (BNVA) | payer MEDICARE, SELFPAY | PROVIDERS: PCP Family Medicine; Visit Provider Family Medicine | DX: Z13.1 Encounter for screening for diabetes mellitus (principal) | CPT/HCPCS: 83036 ==

== ENCOUNTER 2025-09-24 13:46 | Outpatient (CLI) | payer MEDICARE, SELFPAY ==
--- NOTE | 2025-09-24 14:00 | XR_ITS ---
WS: [id number] DEXA (DUAL ENERGY X-RAY ABSORPTIOMETRY) Bone mineral density was performed using a [employer] machine. HISTORY: osteoporosis screening COMPARISON: 02/08/2023 Lumbar spine BMD (L1-L4): 1.297 g/cm2 T score: 1.0 Z score: 2.5 Total hip BMD: Left: 0.848 g/cm2. T score: -1.3 Z score: 0.4 Right: 0.787 g/cm2. T score: -1.7 Z score: -0.1 10 year probability of a major osteoporotic fracture is 22.1%. Compared to the prior study from 02/08/2023. Lumbar spine bone mineral density has decreased by 2.5%. Bilateral hips bone mineral density has increased by 1.1%. XR/XR DEXA axial skeleton* [id number] IMPRESSION: OSTEOPENIA based upon the WHO classification for females. Significant decrease in bone mineral density within the lumbar spine since the prior study. No change of bone mineral density in the hips.
== END 2025-09-24 13:47 | disposition home or self-care (01) ==
LOC: RAD 13:48
PROVIDERS: PCP Family Medicine; Visit Provider Family Medicine
DX: Z13.820 Encounter for screening for osteoporosis (principal); Z78.0 Asymptomatic menopausal state; M85.88 Other specified disorders of bone density and structure, other site
CPT/HCPCS: 77080

== ENCOUNTER → 2025-11-06 10:42 | Outpatient (BNVA) | payer MEDICARE, SELFPAY | PROVIDERS: PCP Family Medicine; Visit Provider Internal Medicine Rheumatology | DX: Z15.89 Genetic susceptibility to other disease (principal); M15.0 Primary generalized (osteo)arthritis; Z96.651 Presence of right artificial knee joint; M51.16 Intervertebral disc disorders with radiculopathy, lumbar region; R76.89 Other specified abnormal immunological findings in serum | CPT/HCPCS: 99214 ==